=== PATIENT | male | born 1930 | race Caucasian/White ===

== ENCOUNTER 2016-05-15 16:31 | Observation (INO) | payer MEDICARE, OTHER ==
[~2016-05-15] VITALS: Ht 180.3 cm; Wt 112.2 kg
[~2016-05-15 16:31] MED LIST: AMLO10TA3 PO; CHOL500011 PO; CYAN50006 SL; DONE10TA42 PO; FLUO40CA PO; FOLI0.8T PO; LOSA25TA21 PO; NAM10 PO; OMEG500C PO; TRAZ-118 PO; VITA400C64 PO
[2016-05-15 16:34] VITALS: BP 168/103; PULSE 103; RESP 18; O2SAT 97
[2016-05-15 19:46] VITALS: BP 129/89; PULSE 97; O2SAT 97
--- NOTE | 2016-05-15 20:06 | ED.REPORT ---
HPI-General Illness Date of Service May 15, 2016 ED Provider: Mario Rendon MD An 85 year old male with mild Parkinson's, Alzheimer's, and a distant history of colon cancer s/p resection presents to the ED with constipation onset six days ago. The patient also reports abdominal pain. He denies nausea, vomiting, diarrhea, fever, or other symptoms. The patient has used stool softeners with no relief. He has had similar symptoms in the past successfully treated with enemas. Nursing Notes Stated Complaint: CONSTIPATION Chief Complaint: Male Abdominal Pain Nursing Notes Reviewed: Yes Allergies: Coded Allergies: No Known Allergies (Verified Allergy, Unknown, 05/15/16) Scheduled Amlodipine (Amlodipine) 10 Mg Tablet 10 MG PO DAILY Cholecalciferol (Vitamin D3) (Vitamin D3) 5,000 Unit Tablet 5,000 UNIT PO DAILY Donepezil (Donepezil) 10 Mg Tablet 10 MG PO HS Fluoxetine (Fluoxetine) 40 Mg Capsule 40 MG PO DAILY Folic Acid (Folic Acid) 0.8 Mg Tablet 0.8 MG PO DAILY Losartan Potassium (Losartan Potassium) 25 Mg Tablet 25 MG PO DAILY Memantine (Namenda) 10 Mg Tablet 10 MG PO BID [place]-3 Fatty Acids (Fish Oil) 500 Mg Capsule.dr 1,000 MG PO DAILY Trazodone (Trazodone) 100 Mg Tablet 100 MG PO TIDWM Vitamin E Mixed (Vitamin E) 400 Unit Capsule 400 UNIT PO DAILY Miscellaneous Medications Cyanocobalamin (Vitamin B-12) (B-12) 5,000 Mcg/1 Ml Drops 5,000 MCG SL General Time Seen by MD: 20:03 Chief Complaint Other (Constipation) Hx Obtained From: Patient Arrived By: Walk-in Sudden in Onset?: No Onset Occurred: 6 days ago Symptom Duration: Since onset Location: : Abdomen Quality: Painful Severity: Current: Moderate Severity: Maximum: Moderate Associated with: Denies: Fever, Nausea, Vomiting Pertinent Negative: Relieved by nothing Context Related History: Reports Cancer Recent Healthcare: No recent doctor visit Similar Sx Previous: Yes Past Medical History Past Medical History Prostate cancer Colon Cancer Alzheimer's Parkinson's Past Surgical History Double hernia Rotator cuff srgery Stenosis/ Back surgery Colon resection Reports: Tonsillectomy Smoking History Never Smoker Social History Alcohol Use: Denies alcohol use Drug Use: Denies drug use Other Social History: Lives alone, Lives with children Occupation lives with daughter 01/21/2016 Ambulatory Status Independent Review of Systems Full Review of Systems Constitutional: Denies: Fever Respiratory: Denies: Non-productive cough, Shortness of breath GI: Reports: Abdominal pain, Constipation, Denies: Diarrhea, Nausea, Vomiting Complete sys rev & neg: except as marked. Physical Exam Vital Signs Vital Signs Date Time Temp Pulse Resp B/P Pulse Ox O2 Delivery O2 Flow Rate FiO2 05/15/16 22:57 78 18 140/90 99 Room Air 05/15/16 19:46 36.4 97 129/89 97 Room Air 05/15/16 16:34 36.3 103 18 168/103 97 Room Air Initial VS: Reviewed Head / Eyes: Atraumatic, Normocephalic ENT: Conjunctiva normal, No scleral icterus Neck: Supple, Full range of motion Respiratory: Breath sounds normal, Clear to auscultation, No respiratory distress Cardiovascular: Regular rate & rhythm, Heart sounds normal Skin: Warm, Dry, No cyanosis Neurologic: Alert, Oriented, Nonfocal Psychiatric: Mood/affect normal, Behavior normal, Normal thought content Abdomen: Soft, Non-tender Obese Rectum / Perineum: Atraumatic, Blood - occult heme - Solid stool in rectum Interpretation & Diagnostics Lab Results Interpretation Result Diagram: 05/15/16202405/15/162024 Test 05/15/16 20:01 05/15/16 20:15 05/15/16 20:25 Hold Urine Received (Received) Urine Color Yellow (YELLOW) Urine Appearance Clear (CLEAR,HAZY) Urine pH 7.5 (5.0-8.0) Urine Specific [place] 1.025 (1.003-1.035) Urine Protein Negativemg/dL (NEG,TRACE) Urine Glucose (UA) Negativemg/dL (NEGATIVE) Urine Ketones Negativemg/dL (NEGATIVE) Urine Occult Blood Moderate (NEGATIVE) Urine Nitrite Negative (NEGATIVE) Urine Bilirubin Negative (NEGATIVE) Urine Urobilinogen 2.0mg/dL (NORMAL) Urine Leukocyte Esterase Negative (NEGATIVE) Urine RBC 0-2/hpf (0-2) Urine WBC 0-5/hpf (0-5) Urine Epithelial Cells None/hpf (NONE-MOD) Urine Crystals None seen (NONE SEEN) Urine Bacteria Few/hpf (NONE-FEW) Urine Hyaline Casts None/lpf (NONE) Urine Granular Casts None seen (NONE SEEN) Urine Waxy Casts None seen (NONE SEEN) Urine Red Blood Cell Casts None seen (NONE SEEN) Urine White Blood Cell Casts None seen (NONE SEEN) Urine Mucus None seen (None Seen) Urine Trichomonas None seen (NONE SEEN) Urine Yeast None (NONE SEEN) Urinalysis Comment None Urine Culture Reflexed Not indicated White Blood Count 7.4th/mm3 (3.8-10.1) Red Blood Count 4.45mil/mm3 (4.40-5.80) Hemoglobin 14.2g/dL (13.8-17.2) Hematocrit 41.8% (41.0-50.0) Mean Corpuscular Volume 93.9fL (81-100) Mean Corpuscular Hemoglobin 31.9pg (27.0-35.0) Mean Corpuscular Hemoglobin Concent 34.0% (32.0-37.0) Red Cell Distribution Width 12.6% (12.3-15.4) Platelet Count 216bil/L (150-400) Neutrophils (%) (Auto) 67.3% (40-74) Lymphocytes (%) (Auto) 22.9% (14-46) Monocytes (%) (Auto) 8.2% (4-12) Eosinophils (%) (Auto) 0.9% (0-5) Basophils (%) (Auto) 0.4% (0-3) Prothrombin Time 10.2sec (8.1-12.5) Prothromb Time International Ratio 0.95ratio Sodium Level 140mEq/L (134-144) Potassium Level 4.2mEq/L (3.5-5.2) Chloride Level 102mEq/L (97-108) Carbon Dioxide Level 25mmol/L (18-29) Blood Urea Nitrogen 19mg/dL (8-27) Creatinine 1.07mg/dL (0.76-1.27) Estimat Glomerular Filtration Rate 70mL/min (>59) Glucose Level 113mg/dL (60-99) Calcium Level 8.7mg/dL (8.5-10.1) Magnesium Level 2.5mg/dL (1.6-2.6) Total Bilirubin 0.3mg/dL (0.0-1.2) Aspartate Amino Transf (AST/SGOT) 24U/L (0-50) Alanine Aminotransferase (ALT/SGPT) 21U/L (0-44) Alkaline Phosphatase 77U/L (25-160) Total Protein 7.6g/dL (6.4-8.4) Albumin 4.1g/dL (3.4-5.0) Lipase 26U/L (13-60) Thyroid Stimulating Hormone (TSH) 2.100uIU/mL (0.450-4.500) Free Thyroxine 1.10ng/dL (0.82-1.77) Hold Peña Top Tube Received (Received) Re-Eval/Medical Decision Med Decision/Clinical Course 85-year-old mild dementia presents with six days of constipation and abdominal pain. His labs are reassuring. Multiple efforts at enemas have been unrevealing. After seven hours of effort emergency department he has become more confused and unable to cooperate. He is admitted now to the medicine service for continuation of his cleanout. Consider lactulose or similar measures if enemas or not productive. Source of Hx: Old records Time of Eval: 20:22 Patient Status: Condition improved Re-Evaluation/Progress Note: Rectal exam performed. Discussed with patient plan for enema. Time of Eval: 01:00 Patient Status: Condition improved Consultation : Referral / Consult Name: Jonathan Ron MD Consulted With: Hospitalist Call Returned at: 01:25 Instructional Coordinator: Agrees with eval, Agrees with plan, Accepts admit Note: Discussed with patient lab results, diagnosis, and plan for admit. Patient agrees with plan for care and all questions were addressed. Counseled Regarding: Diagnosis, Lab results, Need for admission Discharge & Departure Primary Impression: Constipation Constipation type: unspecified constipation type Qualified Code: K59.00 - Constipation, unspecified Additional Impression: Acute confusional state Disposition: ADMITTED TO HOSPITAL Discharge Condition All VS Reviewed: Yes Condition: Improved Referrals: Ed Garcia MD (PCP) Lashon Attestation Portions of this note were transcribed by Melina Velasquez. I, Dr. Rendon, personally performed the history, physical exam, and medical decision-making; I reviewed and confirmed the accuracy of the information in the transcribed note. Signed by: Lashon Garcia, 05/16/2016, 02:55 copies to: Ed Garcia MD, Christopher W MD May 15, 2016 20:06 MELINA VELASQUEZ May 15, 2016 20:22
[2016-05-15 20:28] LABS: APPEARANCE,URINE CLEAR (CLEAR,HAZY); COLOR,URINE YELLOW (YELLOW); PH,URINE 7.5 (5.0-8.0)
[2016-05-15 20:29] LABS: OCCULT BLOOD,URINE MODERATE (NEGATIVE)
[2016-05-15 20:46] LABS: BASOPHILS % (AUTO) 0.4 % (0-3); EOSINOPHILS % (AUTO) 0.9 % (0-5); MONOCYTES % (AUTO) 8.2 % (4-12); Mean Corpuscular Hemoglobin 31.9 pg (27.0-35.0); Mean Corpuscular Volume 93.9 fL (81-100); NEUTROPHILS % (AUTO) 67.3 % (40-74); Platelet Count 216 bil/L (150-400)
[2016-05-15 20:51] LABS: INR 0.95 ratio
[2016-05-15 21:40] LABS: Magnesium 2.5 mg/dL (1.6-2.6)
[2016-05-15 22:57] VITALS: BP 140/90; PULSE 78; RESP 18; O2SAT 99
[2016-05-16] MEDS ORDERED: Polyethylene Glycol (PEG) 17 Gm Powder PO PRN (01:45)
[2016-05-16] MEDS ORDERED: Alum-Mag Hydrox-Simeth 30 mL Suspension PO PRN (01:45)
[2016-05-16] MEDS ORDERED: Ondansetron 2 mg/mL 2 mL Inj IVPUSH PRN (01:45)
[2016-05-16 01:49] VITALS: BP 128/86; PULSE 88; RESP 18; O2SAT 99
--- NOTE | 2016-05-16 02:02 | PCM.HPMED ---
Subjective Date of Service May 16, 2016 Primary Provider: Admitting Physician: Jonathan Ron MD Primary Care Physician: Ed Garcia MD Attending Physician: Jonathan Ron MD Chief Complaint: Constipation History of Present Illness: Jackie Lobo is an 85-year-old obese gentleman with history of dementia with Alzheimer's and parkinsonism features, history of colon cancer status post surgery, and chronic constipation per patient report. He presents with complaint of constipation stating he has not had a bowel movement in 5-6 days despite using daily MiraLAX. Jackie reports that he has had constipation issues for 12-14 years. He reports that he takes MiraLAX and Dulcolax only when he has constipation as he does not like having soft stools, but denies use of any other bowel stimulants or stool softeners. He reports that he has a long-standing history of being in and out of the ER for complicated constipation requiring administration of medications. He reports that they "usually" are able to clean him out, but he reports that the constipation always seems to come back in a week or so. He denies any changes to his diet, fluid intake, medications, He denies any change to his daily activity. Patient reports that his 2-3 years ago secondary to complications associated with dementia. He has been living with his daughter locally ever since. He reports that she cooks all of the meals, and the meals tend to be comprised of a meat of some kind with very little vegetables or fruit , and usually a potato or other starch. When asked if he drinks water, he counted chuckles and says that he drinks a lot of milk. For example, he reports that this morning for breakfast he had a "chocolate mohawk" with a few glasses of milk. Review of outpatient records demonstrates no weight loss of any kind. Some outpatient notes report that his last colonoscopy was 4-5 years ago. In the ER, administered doses of magnesium citrate and one soapsuds enema without apparent success. Admission was requested for further management of his constipation. Patient is admitted under observation status with expected length of stay less than 2 midnights due to severity of presenting symptoms, risk of adverse event, and complexity of treatment plan. Review of Systems: Reports ongoing chronic shoulder and hip pain. Comprehensive review of systems conducted and was negative except for the pertinent positives listed in history of present illness above. Allergies Coded Allergies: No Known Allergies (Verified Allergy, Unknown, 05/15/16) Home Medications From [facility] not yet completed: Jackie Lobo [id number] 11/26/2015 01:00 PM 03/23 amLODIPine BESYLATE 10MG TAB TAKE ONE TABLET BY MOUTH DAILY aspirin 325 mg tablet take 1 tablet by oral route every day B12 5,000 mcg-100 mcg sublingual lozenge 5000 mcg QAM docusate sodium 100 mg capsule take 1 capsule by ORAL route 1 to 3 times every day as needed constipation. DONEPEZIL HCL 10 MG TABLET TAKE ONE TABLET BY MOUTH DAILY Durable Medical Equipment Disabled parking permit Fish Oil 1,000 mg capsule 2 tabs BID folic acid 800 mcg tablet take 1 tablet by oral route every day LOSARTAN POTASSIUM 25 MG TAB TAKE ONE TABLET BY MOUTH DAILY NAMENDA 10 MG TABLET TAKE ONE TABLET BY MOUTH TWICE A DAY Rytary 23.75 mg-95 mg capsule,extended release take 3 capsule by oral route 3 times every day traZODone 100 MG TABLET TAKE ONE TABLET BY MOUTH DAILY AFTER MEALS venlafaxine ER 75 mg capsule,extended release 24 hr take 3 capsule by oral route every day with food in the morning Vitamin D3 5,000 unit tablet vitamin E 400 unit capsule PMH Prostate cancer status post radiation Colon Cancer status post polypectomy (per patient report), but there is a long vertical surgical scar over the anterior abdomen that would suggest a somewhat more involved surgical procedure. Reported an outpatient notes of atrial fibrillation Chronic neck with radiculopathy, shoulder, hip pain Alzheimer's dementia Parkinsonism Hypertension Depression Surgical history Double hernia Rotator cuff surgery Stenosis/ Back surgery Tonsillectomy Polypectomy Family History Patient cannot recall any significant family history. 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 Reports that he served in the [employer] for 3 years during the time of the [place] War. 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 Reports that his approximately 2 years ago, and that prompted his moved to [place] to live with his daughter. Exam Vital Signs Vital Sign - Last Date Time Temp Pulse Resp B/P Pulse Ox O2 Delivery O2 Flow Rate FiO2 05/16/16 01:49 36.2 88 18 128/86 99 Room Air Exam General: Alert, Oriented X3, Cooperative, No Acute Distress Head: Normocephalic, atraumatic. External ears normal. Eyes: PERRL, EOMI. Anicteric sclerae. Conjunctivae are not injected Mouth: Mouth Normal, Mucous Membranes Moist/[place] Neck: Neck supple with full range of motion. No Thyromegaly. Chest & Lungs: Clear to auscultation bilaterally with no crackles, wheezes, or rhonchi. Normal respiratory effort. Cardiovascular: Regular Rate/Rhythm, Normal S1, Normal S2, No Murmurs/Rubs/ Gallops. Radial pulses are 2+ bilaterally as are the posterior tibials. Abdomen: Non-tender (patient reported some discomfort with palpation of the right lower quadrant, but upon reexamination 15 seconds later it was no longer tender), Non-distended, No masses, Normoactive bowel tones, Soft, vertical remote surgical scar GI: Rectal tone is good. Do not appreciate any hard stool in the vault. Do not appreciate any significant enlargement of the prostate gland, and cannot appreciate any mucosal damage. Musculoskeletal: Normal Range of Motion Extremities: No cyanosis/clubbing/edema bilat Neurological: Grossly Neurologically Intact, Cranial Nerves 2-12 Intact, Normal Speech Psych: Normal mood and affect. Thought process and content intact. Lab and Diagnostics Labs Laboratory Tests 72 Hours Test 05/15/16 20:01 05/15/16 20:15 05/15/16 20:25 Hold Urine Received (Received) Urine Color Yellow (YELLOW) Urine Appearance Clear (CLEAR,HAZY) Urine pH 7.5 (5.0-8.0) Urine Specific [place] 1.025 (1.003-1.035) Urine Protein Negativemg/dL (NEG,TRACE) Urine Glucose (UA) Negativemg/dL (NEGATIVE) Urine Ketones Negativemg/dL (NEGATIVE) Urine Occult Blood Moderate (NEGATIVE) Urine Nitrite Negative (NEGATIVE) Urine Bilirubin Negative (NEGATIVE) Urine Urobilinogen 2.0mg/dL (NORMAL) Urine Leukocyte Esterase Negative (NEGATIVE) Urine RBC 0-2/hpf (0-2) Urine WBC 0-5/hpf (0-5) Urine Epithelial Cells None/hpf (NONE-MOD) Urine Crystals None seen (NONE SEEN) Urine Bacteria Few/hpf (NONE-FEW) Urine Hyaline Casts None/lpf (NONE) Urine Granular Casts None seen (NONE SEEN) Urine Waxy Casts None seen (NONE SEEN) Urine Red Blood Cell Casts None seen (NONE SEEN) Urine White Blood Cell Casts None seen (NONE SEEN) Urine Mucus None seen (None Seen) Urine Trichomonas None seen (NONE SEEN) Urine Yeast None (NONE SEEN) Urinalysis Comment None Urine Culture Reflexed Not indicated White Blood Count 7.4th/mm3 (3.8-10.1) Red Blood Count 4.45mil/mm3 (4.40-5.80) Hemoglobin 14.2g/dL (13.8-17.2) Hematocrit 41.8% (41.0-50.0) Mean Corpuscular Volume 93.9fL (81-100) Mean Corpuscular Hemoglobin 31.9pg (27.0-35.0) Mean Corpuscular Hemoglobin Concent 34.0% (32.0-37.0) Red Cell Distribution Width 12.6% (12.3-15.4) Platelet Count 216bil/L (150-400) Neutrophils (%) (Auto) 67.3% (40-74) Lymphocytes (%) (Auto) 22.9% (14-46) Monocytes (%) (Auto) 8.2% (4-12) Eosinophils (%) (Auto) 0.9% (0-5) Basophils (%) (Auto) 0.4% (0-3) Prothrombin Time 10.2sec (8.1-12.5) Prothromb Time International Ratio 0.95ratio Sodium Level 140mEq/L (134-144) Potassium Level 4.2mEq/L (3.5-5.2) Chloride Level 102mEq/L (97-108) Carbon Dioxide Level 25mmol/L (18-29) Blood Urea Nitrogen 19mg/dL (8-27) Creatinine 1.07mg/dL (0.76-1.27) Estimat Glomerular Filtration Rate 70mL/min (>59) Glucose Level 113mg/dL (60-99) Calcium Level 8.7mg/dL (8.5-10.1) Magnesium Level 2.5mg/dL (1.6-2.6) Total Bilirubin 0.3mg/dL (0.0-1.2) Aspartate Amino Transf (AST/SGOT) 24U/L (0-50) Alanine Aminotransferase (ALT/SGPT) 21U/L (0-44) Alkaline Phosphatase 77U/L (25-160) Total Protein 7.6g/dL (6.4-8.4) Albumin 4.1g/dL (3.4-5.0) Lipase 26U/L (13-60) Thyroid Stimulating Hormone (TSH) 2.100uIU/mL (0.450-4.500) Free Thyroxine 1.10ng/dL (0.82-1.77) Hold Peña Top Tube Received (Received) Result Diagram: 05/15/16202405/15/162024 X-Rays, CTs and MRIs None performed this visit 12-lead ECG Not performed this visit Cardiac Echo Impressions Echo on 11/27/14 was unremarkable Assessment & Plan Jackie Lobo is an 85-year-old obese gentleman with history of dementia with Alzheimer's and parkinsonism features, history of colon cancer status post surgery, and chronic constipation per patient report. He presents with complaint of constipation stating he has not had a bowel movement in 5-6 days despite using daily MiraLAX. # Constipation, fecal impaction, long-standing history of constipation. Present on admission -Likely multifactorial * Likely combination of slow transit, dyssynergy, Parkinson's, his donepezil and memantine and venlafaxine, low fiber diet, inactive lifestyle, and some degree of social isolation, and certainly should keep on the differential colorectal cancer (especially given his history) -Received soap suds enema, and magnesium citrate in the ER without significant effect -We could certainly continue with the above, but suspect that he may require manual disimpaction versus endoscopic assistance -We will add mineral oil enema for trial. Schedule senna, and keep MiraLAX when necessary. Consideration for adding docusate and/or lactulose. -No mention of alarm symptoms: No hematochezia, no obstructive symptoms, no acute onset, no weight loss, no change in stool caliber, no reported family history. However, this is severe persisting constipation unresponsive to treatment. -Check stool guaiac (Will hold off on DVT ppx until we have this back) -We will need to stress lifestyle and dietary modification * Increase activity (use cane), increased vegetables and fiber sources in the diet, outpatient discussions regarding placement in a senior facility have met resistance from the patient, explore possible changes to his medication regimen , increase fluid intake (specifically water), optimize his bowel regimen -Given that this is a chronic issue, and therefore we are wishing to avoid stimulant laxatives for a long period of time, consideration for possible use of lubiprostone (colon secretagogue) in outpatient setting with as needed enemas at home to prevent further episodes of fecal impaction like we are seeing today. Chronic conditions: Chronic neck with radiculopathy, shoulder, hip pain-patient reports that she takes ibuprofen at home at night to help him sleep. Will provide a 1 time dose today, and deferred to further discussion with patient and assessment by the day team regarding continuation. Alzheimer's dementia and Parkinsonism-holding medications for now (given his constipation) Hypertension-he has had 2 significantly elevated blood pressures, we will continue to monitor overnight, and consider continuing home antihypertensives ( amlodipine and losartan) Depression-we will hold his venlafaxine (given his constipation) Obesity Please note, outpatient discussions regarding increased social exposure and possible placement in an assisted living facility where he could have more interaction with others. Unfortunately, per the outpatient record patient has been thus far against this course of action. He and his daughter (as she prepares the meals) may benefit from dietary education regarding food choices to help him avoid this problem in the future. When necessary medications include Tylenol and antiemetic as needed Patient is admitted under observation status with expected length of stay less than 2 midnights due to severity of presenting symptoms, risk of adverse event, and complexity of treatment plan. Pain Evaluation: Adequate Pain Control GI Prophylaxis: Not indicated Resuscitation Status: DNR/DNI:Do Not Resuscitate/Intubate Attending Statement The patient was seen and examined together with Dr. Carrasco on 05/16 and I agree with the history, exam and plan as outlined in the note above. copies to: Ed Garcia MD, Collin T DO May 16, 2016 02:02 Jonathan Ron MD May 16, 2016 07:03
[2016-05-16 02:09] VITALS: BP 203/90; PULSE 60; RESP 18; O2SAT 98
[2016-05-16 04:37] VITALS: BP 165/79
[2016-05-16 04:44] VITALS: BP 165/80; PULSE 58; RESP 18; O2SAT 98
--- NOTE | 2016-05-16 05:36 | NUR ---
Admit Pt arrived from ED at 0230. Admitted for constipation over the last 6 days and abdominal pain. Pt was given an enema in the ED and was able to have results after arriving to department. Pt is pleasantly confused.
[2016-05-16 08:38] VITALS: BP 170/82; PULSE 60; RESP 16; O2SAT 98
--- NOTE | 2016-05-16 10:06 | PCM.DIMED ---
Discharge Instructions Date of Service May 16, 2016 Dates of Hospitalization May 16, 2016 at 01:37 Discharge Diagnosis Discharge Diagnosis Constipation Diet Heart Healthy Activity No restrictions (The patient may resume usual activities gradually as tolerated) Call your provider Fever or Chills, Shortness of breath, Bleeding, Chest pain, Vomitting, Excessive diarrhea, Weakness (unilateral) Patient Instructions Follow-up Provider: Ed Garcia MD Follow-up with PCP in: 1 week Mario Lau MD May 16, 2016 10:05
[2016-05-16] MEDS ORDERED: SENN1TAB90 PO (10:09)
[2016-05-16] MEDS ORDERED: POLY17PO6 PO (10:09)
--- NOTE | 2016-05-16 10:50 | NUR ---
Social Work- Initial Assessment Data: Pt is a 85 year old male admitted for constipation, acute confusional state on 05/16/16 per H&P. Pt's insurance is [employer] and PCP is Ed Garcia MD. SW called [facility] Gaston [phone] to discuss discharge plan, SW role explained. Pt resides in a home in [place] with his daughter where he receives minimal assistance with his ADLs. Daughter continues to look into extermination inspector care options, Pt has LTC insurance. Pt has no VA benefits. Pt uses a cane at baseline and does not drive. Pt has experience with [facility] but is not currently open. Pt has no SNF history. SW confirmed DPOA is daughter Lorna Gaston. Pt to discharge home with daughter to transport via POV. No anticipate discharge needs. SW will continue to follow. 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 Plan: Pt to discharge home with daughter to discharge via POV. No anticipated discharge needs. SW will continue to follow if needs arise. ROBERTO Araujo Addendum: 05/16/16 at 1055 by ELIAS HUTSON SS Amended: Links added.
--- NOTE | 2016-05-16 10:50 | NUR ---
Case Management: JANE given and explained to pt at 10:02. Cora QUICKRN
--- NOTE | 2016-05-16 10:56 | NUR ---
Social Work- Discharge Data: EMR reviewed. Pt is on day 1 of hospitalization for constipation per H&P. Pt medically stable to discharge today. Pt to discharge home with daughter to transport via POV. No discharge needs. 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 Plan: Pt to discharge home today. Pt's daughter to transport via POV. No discharge needs. Penny Mayers, SOFTWARE TEST ANALYST
--- NOTE | 2016-05-16 12:23 | NUR ---
Discharge Pt discharged at 1206 with daughter to private vehicle. Pt alert to self only, SIN and no c/o pain. Pt able to have 2 large BM's prior to discharge. Pt's daughter has discharge instructions, care notes and rx's. All questions answered and family understands s/s to return to hospital. Pt had no IV access. Pt left cell phone on tray table in room, called daughter and she will return for phone, stored at wire charger desk.
--- NOTE | 2016-05-16 23:12 | PCM.DC.MED ---
Discharge Summary Date of Service May 16, 2016 Dates of Hospitalization Date of Hospital Admission May 16, 2016 at 01:37 Date of Discharge: May 16, 2016 Providers: Admitting Physician: Jonathan Ron MD Primary Care Physician: Ed Garcia MD Attending Physician: Jonathan Ron MD Diagnosis at Time of Discharge Diagnosis at Time of Discharge Constipation Procedures XRay, CTs & MRIs None performed this visit ECG 12 Lead Not performed this visit Cardiac Echo Impression Echo on 11/27/14 was unremarkable Brief History Jackie Lobo is an 85-year-old obese gentleman with history of dementia with Alzheimer's and parkinsonism features, history of colon cancer status post surgery, and chronic constipation per patient report. He presents with complaint of constipation stating he has not had a bowel movement in 5-6 days despite using daily MiraLAX. Jackie reports that he has had constipation issues for 12-14 years. He reports that he takes MiraLAX and Dulcolax only when he has constipation as he does not like having soft stools, but denies use of any other bowel stimulants or stool softeners. He reports that he has a long-standing history of being in and out of the ER for complicated constipation requiring administration of medications. He reports that they "usually" are able to clean him out, but he reports that the constipation always seems to come back in a week or so. He denies any changes to his diet, fluid intake, medications, He denies any change to his daily activity. Patient reports that his 2-3 years ago secondary to complications associated with dementia. He has been living with his daughter locally ever since. He reports that she cooks all of the meals, and the meals tend to be comprised of a meat of some kind with very little vegetables or fruit , and usually a potato or other starch. When asked if he drinks water, he counted chuckles and says that he drinks a lot of milk. For example, he reports that this morning for breakfast he had a "chocolate macanese" with a few glasses of milk. Review of outpatient records demonstrates no weight loss of any kind. Some outpatient notes report that his last colonoscopy was 4-5 years ago. In the ER, administered doses of magnesium citrate and one soapsuds enema without apparent success. Admission was requested for further management of his constipation. Patient was admitted under observation status with expected length of stay less than 2 midnights due to severity of presenting symptoms, risk of adverse event, and complexity of treatment plan. Hospital Course Jackie Lobo is an 85-year-old obese gentleman with history of dementia with Alzheimer's and parkinsonism features, history of colon cancer status post surgery, and chronic constipation per patient report. He presents with complaint of constipation stating he has not had a bowel movement in 5-6 days despite using daily MiraLAX. # Constipation, fecal impaction, long-standing history of constipation. Present on admission now resolved this patient has had 2 large bowel movements -Likely multifactorial * Likely combination of slow transit, dyssynergy, Parkinson's, his donepezil and memantine and venlafaxine, low fiber diet, inactive lifestyle, and some degree of social isolation, and certainly should keep on the differential colorectal cancer (especially given his history) -Received soap suds enema, and magnesium citrate in the ER without significant effect -We could certainly continue with the above, but suspect that he may require manual disimpaction versus endoscopic assistance -We will add mineral oil enema for trial. Schedule senna, and keep MiraLAX when necessary. Consideration for adding docusate and/or lactulose. -No mention of alarm symptoms: No hematochezia, no obstructive symptoms, no acute onset, no weight loss, no change in stool caliber, no reported family history. However, this is severe persisting constipation unresponsive to treatment. -Check stool guaiac (Will hold off on DVT ppx until we have this back) -We will need to stress lifestyle and dietary modification * Increase activity (use cane), increased vegetables and fiber sources in the diet, outpatient discussions regarding placement in a senior facility have met resistance from the patient, explore possible changes to his medication regimen , increase fluid intake (specifically water), optimize his bowel regimen - We will discharge home on senna +1 tablet by mouth twice a day Chronic conditions: Chronic neck with radiculopathy, shoulder, hip pain-patient reports that she takes ibuprofen at home at night to help him sleep. Will provide a 1 time dose today, and deferred to further discussion with patient and assessment by the day team regarding continuation. Alzheimer's dementia and Parkinsonism-holding medications for now (given his constipation) Hypertension-he has had 2 significantly elevated blood pressures, we will continue to monitor overnight, and consider continuing home antihypertensives ( amlodipine and losartan) Depression-we will hold his venlafaxine (given his constipation) Obesity Please note, outpatient discussions regarding increased social exposure and possible placement in an assisted living facility where he could have more interaction with others. Unfortunately, per the outpatient record patient has been thus far against this course of action. He and his daughter (as she prepares the meals) may benefit from dietary education regarding food choices to help him avoid this problem in the future. When necessary medications include Tylenol and antiemetic as needed Patient is being discharged home today. Exam Vital Signs (Last) Date Time Temp Pulse Resp B/P Pulse Ox O2 Delivery O2 Flow Rate FiO2 05/16/16 08:38 36.4 60 16 170/82 98 Room Air Exam General: Patient is in no apparent distress. HEENT: Head is atraumatic and normocephalic with normal male pattern baldness. Eyes: Pupils are equally round and reactive to light and accommodation. Extraocular muscles are intact. Sclera are white, anicteric. Subconjunctival mucosa is pink. Ears and nose are unremarkable. Oropharynx: There is no mucosal lesions, there is no thrush, there is no pharyngitis. Neck: Is supple, there are no nodes, or masses or tenderness. Chest: Is clear to auscultation and percussion. There are no rales, rhonchi, wheezes or rubs. Heart: Rate, rhythm is regular. There is no murmur, rub or gallop. Abdomen: Good bowel sounds are present. Abdomen is obese soft, nontender, no organomegaly or masses were appreciated. Extremities: Are symmetrical and well perfused. There is no edema, there is no cellulitis, no rash. Neurologic: There are no focal neurological deficits. Cranial nerves II through XII are intact. There are no sensory or motor deficits. Psychiatric: Patients mood is calm and shows no sign of agitation. Genital: Deferred Rectal: Deferred Test 05/15/16 20:01 05/15/16 20:15 05/15/16 20:25 Hold Urine Received (Received) Urine Color Yellow (YELLOW) Urine Appearance Clear (CLEAR,HAZY) Urine pH 7.5 (5.0-8.0) Urine Specific Cando 1.025 (1.003-1.035) Urine Protein Negativemg/dL (NEG,TRACE) Urine Glucose (UA) Negativemg/dL (NEGATIVE) Urine Ketones Negativemg/dL (NEGATIVE) Urine Occult Blood Moderate (NEGATIVE) Urine Nitrite Negative (NEGATIVE) Urine Bilirubin Negative (NEGATIVE) Urine Urobilinogen 2.0mg/dL (NORMAL) Urine Leukocyte Esterase Negative (NEGATIVE) Urine RBC 0-2/hpf (0-2) Urine WBC 0-5/hpf (0-5) Urine Epithelial Cells None/hpf (NONE-MOD) Urine Crystals None seen (NONE SEEN) Urine Bacteria Few/hpf (NONE-FEW) Urine Hyaline Casts None/lpf (NONE) Urine Granular Casts None seen (NONE SEEN) Urine Waxy Casts None seen (NONE SEEN) Urine Red Blood Cell Casts None seen (NONE SEEN) Urine White Blood Cell Casts None seen (NONE SEEN) Urine Mucus None seen (None Seen) Urine Trichomonas None seen (NONE SEEN) Urine Yeast None (NONE SEEN) Urinalysis Comment None Urine Culture Reflexed Not indicated White Blood Count 7.4th/mm3 (3.8-10.1) Red Blood Count 4.45mil/mm3 (4.40-5.80) Hemoglobin 14.2g/dL (13.8-17.2) Hematocrit 41.8% (41.0-50.0) Mean Corpuscular Volume 93.9fL (81-100) Mean Corpuscular Hemoglobin 31.9pg (27.0-35.0) Mean Corpuscular Hemoglobin Concent 34.0% (32.0-37.0) Red Cell Distribution Width 12.6% (12.3-15.4) Platelet Count 216bil/L (150-400) Neutrophils (%) (Auto) 67.3% (40-74) Lymphocytes (%) (Auto) 22.9% (14-46) Monocytes (%) (Auto) 8.2% (4-12) Eosinophils (%) (Auto) 0.9% (0-5) Basophils (%) (Auto) 0.4% (0-3) Prothrombin Time 10.2sec (8.1-12.5) Prothromb Time International Ratio 0.95ratio Sodium Level 140mEq/L (134-144) Potassium Level 4.2mEq/L (3.5-5.2) Chloride Level 102mEq/L (97-108) Carbon Dioxide Level 25mmol/L (18-29) Blood Urea Nitrogen 19mg/dL (8-27) Creatinine 1.07mg/dL (0.76-1.27) Estimat Glomerular Filtration Rate 70mL/min (>59) Glucose Level 113mg/dL (60-99) Calcium Level 8.7mg/dL (8.5-10.1) Magnesium Level 2.5mg/dL (1.6-2.6) Total Bilirubin 0.3mg/dL (0.0-1.2) Aspartate Amino Transf (AST/SGOT) 24U/L (0-50) Alanine Aminotransferase (ALT/SGPT) 21U/L (0-44) Alkaline Phosphatase 77U/L (25-160) Total Protein 7.6g/dL (6.4-8.4) Albumin 4.1g/dL (3.4-5.0) Lipase 26U/L (13-60) Thyroid Stimulating Hormone (TSH) 2.100uIU/mL (0.450-4.500) Free Thyroxine 1.10ng/dL (0.82-1.77) Hold Peña Top Tube Received (Received) Discharge Medications Discharge Medications Amlodipine (Amlodipine) 10 Mg Tablet 10 MG PO DAILY (Reported) Cholecalciferol (Vitamin D3) (Vitamin D3) 5,000 Unit Tablet 5,000 UNIT PO DAILY (Reported) Donepezil (Donepezil) 10 Mg Tablet 10 MG PO HS (Reported) Fluoxetine (Fluoxetine) 40 Mg Capsule 40 MG PO DAILY (Reported) Folic Acid (Folic Acid) 0.8 Mg Tablet 0.8 MG PO DAILY (Reported) Losartan Potassium (Losartan Potassium) 25 Mg Tablet 25 MG PO DAILY (Reported) Memantine (Namenda) 10 Mg Tablet 10 MG PO BID (Reported) [place]-3 Fatty Acids (Fish Oil) 500 Mg Capsule.dr 1,000 MG PO DAILY (Reported) Sennosides/Docusate Sodium (Senna-Docusate Sodium Tablet) 1 Each Tablet 1 EACH PO BID Prescribed by: MALENA LAU MD Trazodone (Trazodone) 100 Mg Tablet 100 MG PO TIDWM (Reported) Vitamin E Mixed (Vitamin E) 400 Unit Capsule 400 UNIT PO DAILY (Reported) As needed Polyethylene Glycol 3350 (Miralax) 17 Gm Powd.pack 17 GM PO DAILY PRN PRN For Constipation Prescribed by: MALENA LAU MD Miscellaneous Medications Cyanocobalamin (Vitamin B-12) (B-12) 5,000 Mcg/1 Ml Drops 5,000 MCG SL (Reported ) Followup Plan Disposition: Patient being discharged home with his daughter. Discharge Diet: Heart Healthy Discharge Activity: No restrictions (The patient may resume usual activities gradually as tolerated) Follow-up Provider: Ed Garcia MD Follow-up with PCP in: 1 week Time spent Time spent on discharging this patient was greater than 35 minutes, over half of which was involved in counseling and coordination of care. Mario Lau MD May 16, 2016 23:12
[2016-08-16] MEDS ORDERED: LACT10SO (13:09)
[2016-08-16] MEDS ORDERED: ARIP2TAB11 (13:09)
[2016-08-16] MEDS ORDERED: VENL75CA95 (13:09)
[2016-08-16] MEDS ORDERED: CARB1TAB14 PO (13:09)
[2016-08-16] MEDS ORDERED: TAMS0.4C29 (13:09)
== END 2016-05-16 12:00 | disposition home or self-care (01) ==
LOC: SED 16:31 → OSC 05-16 01:37
PROVIDERS: ADMIT Hospitalist; ATTEND Hospitalist
DX: K59.00 Constipation, unspecified (principal); G20 Parkinson's disease; G30.9 Alzheimer's disease, unspecified; F02.80 Dementia in other diseases classified elsewhere, unspecified severity, without behavioral disturbance, psychotic disturbance, mood disturbance, and anxiety; I10 Essential (primary) hypertension; F32.9 Major depressive disorder, single episode, unspecified; M54.12 Radiculopathy, cervical region; M54.2 Cervicalgia; E66.9 Obesity, unspecified; Z66 Do not resuscitate; Z85.038 Personal history of other malignant neoplasm of large intestine; Z85.46 Personal history of malignant neoplasm of prostate; Z68.34 Body mass index [BMI] 34.0-34.9, adult
CPT/HCPCS: 36415; 80053; 81000; 83690; 83735; 84439; 84443; 85025; 85610; 99285; G0378

== ENCOUNTER 2016-08-17 05:43 | Day surgery (SDC) | payer MEDICARE, OTHER ==
[~2016-08-17] VITALS: Ht 177.8 cm; Wt 116.1 kg
[2016-08-17] VITALS (10 sets, daily range): BP systolic 148–181; BP diastolic 67–85; PULSE 56–67; RESP 8–17; O2SAT 97–100
[~2016-08-17 05:43] MED LIST changes: +ARIP2TAB11; +CARB1TAB14 PO; +LACT10SO; +POLY17PO6 PO; +SENN1TAB90 PO; +TAMS0.4C29; +VENL75CA95
[2016-08-17] MEDS ORDERED: Dexamethasone 4 mg/mL Inj ONE (05:44)
[2016-08-17] MEDS ORDERED: EPHEDrine/NS 5 mg/mL 5 mL Syringe ONE (05:44)
[2016-08-17] MEDS ORDERED: Propofol 10,000 mCg/mL 20 mL Inj ONE (05:44)
[2016-08-17] MEDS ORDERED: levoFLOXacin Inj 500 MG in IV Premix 1 EACH IV SCH (06:00)
[2016-08-17] MEDS: Lactated Ringer's 1,000 ML IV SCH ×2 (06:29→09:23)
[2016-08-17 07:06] LABS: BASOPHILS % (AUTO) 0.5 % (0-3); EOSINOPHILS % (AUTO) 2.6 % (0-5); MONOCYTES % (AUTO) 11.4 % (4-12); Mean Corpuscular Hemoglobin 32.1 pg (27.0-35.0); Mean Corpuscular Volume 96.4 fL (81-100); NEUTROPHILS % (AUTO) 63.4 % (40-74); Platelet Count 170 bil/L (150-400)
[2016-08-17] MEDS ORDERED: ASPI325T32 PO (07:43)
--- NOTE | 2016-08-17 08:25 | DRSVH ---
PROCEDURE: X-RAY KUB ([id number]) INDICATIONS: LEFT NEPHROLITHIASIS TECHNIQUE: One view of the abdomen acquired. COMPARISON: [facility], CT, CT ABD PELVIS W&WO CON IVP, 07/12/2016, 13:57. [facility], CR, XR KUB, 01/21/2016, 13:41. FINDINGS: Surgical changes and devices: None. Bowel: Bowel gas pattern is normal. Soft tissues: 2.5 cm calcification is seen projected over the midpole of the left kidney. 2 calcific ations project over the right kidney largest measuring 2.0 cm and the smaller 1.1 cm. Bones: No suspicious bony lesions. IMPRESSION: Calcifications projected over the right and left kidneys as above. Dictated by: Avila CASTRO Interpreted: Vikram Banks MD on 08/17/2016 at 8:23 Transcribed by: LORNA on 08/17/2016 at 8:25 Approved by: Vikram Banks M.D. on 08/17/2016 at 12:19
[2016-08-17] MEDS ORDERED: Lactated Ringer's 500 ML IV PRN (09:42)
[2016-08-17] MEDS ORDERED: Lactated Ringer's 1,000 ML IV SCH (09:42)
[2016-08-17] MEDS ORDERED: EPHEDrine Sulfate 50 mg/mL Inj IVPUSH PRN (09:45)
[2016-08-17] MEDS ORDERED: fentaNYL-PF 50 mCg/mL 2 mL Inj IVPUSH PRN (09:45)
[2016-08-17] MEDS ORDERED: Phenylephrine 10,000 mCg/mL Inj IVPUSH PRN (09:45)
[2016-08-17] MEDS ORDERED: Atropine 0.4 mg/mL Inj IVPUSH PRN (09:45)
[2016-08-17] MEDS ORDERED: Labetalol 5 mg/mL 4 mL Inj IV PRN (09:45)
--- NOTE | 2016-08-17 09:51 | PCM.HPANE ---
Patient Data Surgeon Admitting Provider: Attending Provider:Miroslava Light MD Primary Care Physician:Ed Garcia MD Other Provider:[facility] Reason for Visit Kidney Stone Ht/WT & BMI Height (Feet): 5 Height (Inches): 10 Weight (Kilograms): 116.1 Body Mass Index 36.00 Allergies Coded Allergies: No Known Allergies (Verified Allergy, Unknown, 05/15/16) Past Anesthesia History Anesthesia History: Denies:: Abnormal Airway, Anesthesia Reactions, Difficult Intubation, Fam Anesthesia Reaction, Fam Malignant Hypertherm, Malignant Hyperthermia Diabetes History Hx Diabetes?: No MRSA MRSA: No Medications Home Meds Incl Beta Lul: No Active Scripts Sennosides/Docusate Sodium (Senna-Docusate Sodium Tablet)1 Each Tablet1 Each PO BID #60 TABLET Prov:Mario Lau MD 05/16/16 Polyethylene Glycol 3350 (Miralax)17 Gm Powd.pack17 Gm PO DAILY PRN For Constipation #30 Prov:Mario Lau MD 05/16/16 Reported Medications Aspirin 325 Mg [id number] Mg PO DAILY #1 BOTTLE 08/17/16 Lactulose 10 Gm/15 Ml Vvvjxuyy18 Ml DAILY #473 08/16/16 Tamsulosin ER 0.4 Mg Cap.er.24h #31 08/16/16 Aripiprazole 2 Mg Tablet2 Mg HS #28 08/16/16 Venlafaxine ER 75 Mg Cap.er.93p295 Mg #84 08/16/16 Carbidopa/Levodopa 25-100 mg 1 Each Tablet1 Tab PO TID #84 08/16/16 Vitamin E Mixed (Vitamin E)400 Unit [id number] Unit PO DAILY 30 Days 11/02/14 Cholecalciferol (Vitamin D3) (Vitamin D3)5,000 Unit Tablet5,000 Unit PO DAILY 11/02/14 Trazodone 100 Mg Nexzyk228 Mg PO TIDWM Ref 0 11/02/14 Memantine (Namenda)10 Mg Kdrxgv89 Mg PO BID 30 Days Ref 0 11/02/14 Losartan Potassium 25 Mg Ttcsab98 Mg PO DAILY 11/02/14 Folic Acid 0.8 Mg Tablet0.8 Mg PO DAILY 11/02/14 [place]-3 Fatty Acids (Fish Oil)500 Mg Capsule.dr1,000 Mg PO BID 11/02/14 Donepezil 10 Mg Pplfxw76 Mg PO HS Ref 0 11/02/14 Cyanocobalamin (Vitamin B-12) (B-12)5,000 Mcg/1 Ml Drops5,000 Mcg SL 11/02/14 Amlodipine 10 Mg Kehpvi91 Mg PO DAILY Ref 0 11/02/14 Discontinued Reported Medications Fluoxetine 40 Mg Avtgmtr32 Mg PO DAILY Ref 0 11/02/14 History History of ENT Problems?: Yes HEENT History: Positive for:: Dysphagia (with water) Denies:: Cataracts Sinus Problem Denture Type: None Teeth Condition: Missing Teeth Hx of Heart Problems?: Yes Cardiovascular History: Positive for:: Hypertension Denies:: AICD Abdominal Aortic Aneurism Atrial Fibrillation Cardiac Surgery Chest Pain Congestive Heart Failure Coronary Artery Disease Edema Heart Murmur Irregular Heartbeat Pacemaker Peripheral Vascular Rheumatic Fever Thrombophlebitis Valvular Heart Disease Hx of Respiratory Problem?: No Respiratory History: Denies:: Asthma COPD Chest Surgery Cough Dyspnea Emphysema Hemoptysis Oxygen Administration Pneumonia Pulmonary Embolism Tuberculosis Use of C-PAP Machine Use of Inhalers / NEBS Hx Neurologic Problems?: Yes Neurological History: Positive for:: Alzheimer's Disease Dementia Parkinson's Disease Denies:: CVA Dizziness Headaches Multiple Sclerosis Peripheral Neuropathy Seizures TIA Hx of GI Problems?: Yes Gastrointestinal History: Denies:: Cirrhosis Diverticulitis Gall Bladder Disease Gastroesphageal Reflux Gastrointestinal Bleeding Heartburn Hepatitis Hiatal Hernia Liver Disease Rectal Bleeding Other GI Pertinent History: COLON CA S/P SURGERY---CHRONIC CONSTIPATION Hx of Problems?: No Genitourinary History: Denies:: HX of Hemodialysis Kidney Stones Urinary Tract Infection HX of Peritoneal Dialysis: No Male Hx: Positive for:: Prostate Problems (CA S/P RADIATION) Denies:: Scrotal Mass Testicular Surgery Skin History: Positive for:: Pressure Ulcers Denies:: History Skin Disorders? Hx Musculoskeletal Problems?: Yes Musculoskeletal History: Positive for:: Osteoarthritis (CHRONIC SHLDR AND HIP PAIN) Denies:: Back Injury Degenerative Joint Fibromyalgia Joint Replacement Musculoskeletal Trauma Myasthenia Gravis Rheumatoid Arthritis Systemic Lupus Hx of Psycho/Social Problems?: Yes Psycho Social History: Positive for:: Anxiety (situational) Hx Depression Denies:: Bipolar Disorder Suicide Attempt Hx Surgeries?: Yes (hernia, colon disection) Hx Any Other Health Problems?: Yes Other History: Positive for:: Cancer (colon and prostate) Denies:: Endocrine Disease Hospitalization Thyroid Disease History Blood Transfusions: Denies:: Accept Blood Products? Blood Transfuse Reaction Blood Transfusions Hx Diabetes: No Hx Alcohol Use: NoHx Substance Use: No Smoking Status: Never Smoker Stop/Bang S-Snoring: Do You Snore Loudly: No T-Tired: feel tired, fatigued: No O-Obsered: Observed not breath: No P-Blood Pressure: treated: Yes B- Body Mass Index > 35 kg/m2: Yes A- Age over 50: Yes N- Neck Large Circumference: No G- Gender Male: Yes CARISSA Total Score: 4 CARISSA Category 2: Yes Risk Assessment Category Category 1A: Patient has history of documented sleep apnea, and HAS NOT received any narcotic, sedative or anesthesia administration during this stay. Category 1B: Patient has history of documented sleep apnea, and HAS received any narcotic , sedative or anesthesia administration during this stay Category 2: Patient has SUSPECTED Obstructive Sleep Apnea, and HAS received any narcotic , sedative or anesthesia administration during this stay. Category 3: Patient has SUSPECTED Obstructive Sleep Apnea and HAS NOT received narcotic, sedative or anesthesia administration during this stay. Category 4: Outpatient in Procedural Areas with known sleep apnea or who screen positive for High Risk via the STOP/BANG questionnaire. Exam Exam Vital Signs Vital Signs Date Time Temp Pulse Resp B/P Pulse Ox O2 Delivery O2 Flow Rate FiO2 08/17/16 06:41 36.3 67 16 180/85 97 Room Air General Appearance: Alert, Oriented X3, Cooperative, No Acute Distress HEENT/AIRWAY: MP 2, Neck Movement (some neck stiffness), Mouth Opening (3 FBMO) Lungs: Clear to Auscultation, Normal Air Movement Heart: Exam Unremarkable, Regular Rate/Rhythm Meds/Labs/Diagnostics Admission Meds Current Medications Lactated Ringer's (Lr) 1,000 ml @ 120 mls/hr Q8H20M IV Last administered on t 06:29; Start 08/17/16 at 05:00; Stop 08/17/16 at 13:19 Labs Test 08/17/16 06:59 White Blood Count 7.4th/mm3 (3.8-10.1) Red Blood Count 4.17mil/mm3 (4.40-5.80) Hemoglobin 13.4g/dL (13.8-17.2) Hematocrit 40.2% (41.0-50.0) Mean Corpuscular Volume 96.4fL (81-100) Mean Corpuscular Hemoglobin 32.1pg (27.0-35.0) Mean Corpuscular Hemoglobin Concent 33.3% (32.0-37.0) Red Cell Distribution Width 13.3% (12.3-15.4) Platelet Count 170bil/L (150-400) Neutrophils (%) (Auto) 63.4% (40-74) Lymphocytes (%) (Auto) 21.8% (14-46) Monocytes (%) (Auto) 11.4% (4-12) Eosinophils (%) (Auto) 2.6% (0-5) Basophils (%) (Auto) 0.5% (0-3) Plan Impression Patient chart reviewed, patient interviewed and anesthestic plan with risks, benefits, and alternatives discussed, and informed consent obtained. NPO per Anesth. Guidelines: Yes ASA Physical Status: ASA3 Severe Disease (parkinsons) Anesthetic Plan: GA Bene/Risks/Altern/Consents: Yes HP Complete Prior to Induction: Yes Jose Angel Schaeffer MD Aug 17, 2016 07:15
--- NOTE | 2016-08-17 10:38 | PCM.ANEP1 ---
Post Anesthesia PACU Phase 1 Assessment Vital Signs Vital Signs Date Time Temp Pulse Resp B/P Pulse Ox O2 Delivery O2 Flow Rate FiO2 08/17/16 10:35 58 13 181/67 99 Room Air 08/17/16 10:30 36.7 59 15 166/70 98 Room Air 08/17/16 10:25 60 11 161/70 97 Room Air 08/17/16 10:20 61 16 162/74 99 Room Air 08/17/16 10:15 36.2 60 17 164/74 100 Simple Mask 7 08/17/16 10:10 61 16 161/70 100 Simple Mask 7 08/17/16 10:05 59 8 148/69 100 Simple Mask 12 08/17/16 10:03 36.2 149/71 08/17/16 06:41 36.3 67 16 180/85 97 Room Air Anesthetic Administered: GA Level of Alertness: Awake, talking SIN's with Equal Strength: Yes Pain: No Nausea or Vomiting: No CV Function & Hydration Stable: No Airway Device: Oxygen Delivery: Simple Mask Lungs: Clear to Auscultation, Normal Air Movement Dermatome Level: Full Sensation PACU Phase 2 Assessment Complications: No Follow up Care: N/A Patient Instructions Provided: N/A Jose Angel Schaeffer MD Aug 17, 2016 10:38
--- NOTE | 2016-08-17 10:55 | OP ---
[address] [address] OPERATIVE REPORT PATIENT: BENEDICTO TRIPLETT : 1930 MR#: [id number] ADMIT: 08/17/2016 JOB ID: [id number] DATE OF SURGERY: 08/17/2016 SURGEON: Miroslava Light MD PREOPERATIVE DIAGNOSIS(ES): Left kidney stone. POSTOPERATIVE DIAGNOSIS(ES): Phimosis and left kidney stone. PROCEDURE PERFORMED: 1. Cystoscopy and left retrograde pyelogram. 2. Left ureteral stent placement (modifier 22 is being requested given the patient's severe phimosis). OUTPATIENT INTERVIEWING CLERK: None. FINDINGS: 1. Severe phimosis. 2. Normal left retrograde pyelogram. ANESTHESIA: General. ESTIMATED BLOOD LOSS: Less than 5 mL. DRAINS: A 6 x 28 left double-J ureteral stent. SPECIMENS: None. COMPLICATIONS: None. CONDITION: Stable. INDICATIONS FOR PROCEDURE: The patient is an 86-year-old man with bilateral nephrolithiasis. He was scheduled today for a left extracorporeal shockwave lithotripsy and stent placement. However, the patient continued to take his fish oil. He was therefore counseled regarding the modified nature of the procedure, that being stent placement only given that this can be done even with fish oil. He voiced understanding and understands he will be rescheduled for the next shockwave lithotripsy date. It will be coordinated with his fdc facility to stop his aspirin and fish oil 7 days prior to the date of the procedure. DESCRIPTION OF THE PROCEDURE: After informed consent was obtained, the patient was taken to the operating room. A time-out was performed identifying correct patient, surgical site, and procedure. General anesthesia was smoothly induced. He was placed in the lithotomy position and all pressure points were identified and appropriately padded. Genitals were then prepped and draped in a sterile fashion. It was observed that the patient had severe phimosis. The foreskin could not be retracted. Gentle manipulation of the penis to produce the glans through the foreskin was unsuccessful. Christy clamp was placed within the phimotic ring of foreskin and used to gently dilate the foreskin. This resulted in only scant bleeding. The meatus could be seen through this now dilated phimotic ring. It was cannulated with a 22-[place] rigid cystoscope. The cystoscope was then advanced to the patient's bladder and the bladder was drained. The bladder appeared somewhat trabeculated, but not severely so. The left ureteral orifice was seen in orthotopic position. It was cannulated with a 5-[place] open-ended Pollack catheter. Retrograde pyelogram was performed. It appeared normal. A Sensor tip wire was used to cannulate the Pollack and it was advanced to the renal pelvis and seen under fluoroscopy. The Pollack was then backloaded off the wire. A 6 x 28 double-J ureteral stent was loaded over it and advanced into the renal pelvis as seen under fluoroscopy. The wire was then removed leaving a nice coil in the patient's bladder as seen under direct vision. The bladder was then drained. The instruments were then removed from the patient's body. The foreskin was examined again and there was no bleeding. The patient was reversed from general anesthesia and taken to PACU in good and stable condition. Modifier 22 is being requested for this procedure as cystoscopy took over 3 times longer given the severe phimosis present. MARY
[2016-08-17] MEDS ORDERED: oxyCODONE-Acetamin 5-325 mg Tablet PO ONE ×2 (11:35→14:10)
== END 2016-08-17 23:59 | disposition home or self-care (01) ==
LOC: SAS 05:43
PROVIDERS: ATTEND Urology
DX: N20.0 Calculus of kidney (principal); N47.1 Phimosis; R35.1 Nocturia; I10 Essential (primary) hypertension; I48.0 Paroxysmal atrial fibrillation; G20 Parkinson's disease; F02.80 Dementia in other diseases classified elsewhere, unspecified severity, without behavioral disturbance, psychotic disturbance, mood disturbance, and anxiety; F32.9 Major depressive disorder, single episode, unspecified; E66.8 Other obesity; Z79.82 Long term (current) use of aspirin; Z85.038 Personal history of other malignant neoplasm of large intestine; Z85.46 Personal history of malignant neoplasm of prostate; Z68.36 Body mass index [BMI] 36.0-36.9, adult
CPT/HCPCS: 36415; 52332; 74000; 80048; 85025; C2617; J1100; J7120

== ENCOUNTER 2016-08-31 07:44 | Day surgery (SDC) | payer MEDICARE, OTHER ==
[2016-08-31] VITALS (10 sets, daily range): BP systolic 112–159; BP diastolic 59–76; PULSE 52–67; RESP 13–18; O2SAT 94–99
[~2016-08-31] VITALS: Ht 177.8 cm; Wt 117.1 kg
[~2016-08-31 07:44] MED LIST changes: +ASPI325T32 PO; +CeFAZolin 2 Gm/50 mL D5W IV Premix IV ONE; -FLUO40CA PO
[2016-08-31] MEDS ORDERED: Ondansetron 2 mg/mL 2 mL Inj ONE (07:45)
[2016-08-31] MEDS ORDERED: Propofol 10,000 mCg/mL 20 mL Inj ONE (07:45)
[2016-08-31] MEDS: Lactated Ringer's 1,000 ML IV SCH ×2 (08:20→10:43)
[2016-08-31] MEDS ORDERED: Gentamicin Inj 120 MG in Dextrose 5% 100 ML IV ONE (08:56)
--- NOTE | 2016-08-31 09:01 | DRSVH ---
PROCEDURE: X-RAY KUB ([id number]) INDICATIONS: LEFT KIDNEY STONE TECHNIQUE: One view of the abdomen acquired. COMPARISON: [facility], CR, XR KUB, 08/17/2016, 6:14. [facility], CR, XR KUB , 01/21/2016, 13:41. FINDINGS: Surgical changes and devices: The there has been interval placement of a double-J left-sided ureteral stent, which is grossly in appropriate position. Postoperative changes within the right upper quadr ant appear to be related to prior bowel surgery. Bowel: Bowel gas pattern is normal. No air-filled distended small bowel loops are seen demonstratin g air-fluid levels. Soft tissues: There is an ovoid calcification seen within the left upper quadrant. An irregular calc ification is seen within the right upper quadrant. Both of these calculi are overlying the expected location of the kidneys. Visualized solid organ contours appear normal in size. Bones: No suspicious bony lesions. Moderate to severe degenerative changes involving the imaged spi ne, sacroiliac joints, hips, and pubic symphysis are noted. No displaced fractures are evident. IMPRESSION: 1. Interval placement of a double-J left ureteral stent. 2. Bilateral renal calculi. 3. No evidence of bowel obstruction is appreciated. Dictated by: Lamont Goldberg M.D. on 08/31/2016 at 8:58 Approved by: Lamont Goldberg M.D. on 08/31/2016 at 8:59
--- NOTE | 2016-08-31 10:14 | PCM.HPANE ---
Patient Data Surgeon Admitting Provider: Attending Provider:Chelsea Lubin MD Primary Care Physician:Ed Garcia MD Other Provider:Kallie Loganingham Anesthesia Reason for Visit Left Kidney Stone Ht/WT & BMI Height (Feet): 5 Height (Inches): 10 Weight (Kilograms): 117.1 Body Mass Index 36.00 Allergies Coded Allergies: No Known Allergies (Verified Allergy, Unknown, 05/15/16) Past Anesthesia History Anesthesia History: Denies:: Abnormal Airway, Anesthesia Reactions, Difficult Intubation, Fam Anesthesia Reaction, Fam Malignant Hypertherm, Malignant Hyperthermia Diabetes History Hx Diabetes?: No MRSA MRSA: No Medications Blood Thinner: Aspirin Hypertension Medication: Yes Home Meds Incl Beta Lul: No Active Scripts Sennosides/Docusate Sodium (Senna-Docusate Sodium Tablet)1 Each Tablet1 Each PO BID #60 TABLET Prov:Mario Lau MD 05/16/16 Polyethylene Glycol 3350 (Miralax)17 Gm Powd.pack17 Gm PO DAILY PRN For Constipation #30 Prov:Mario Lau MD 05/16/16 Reported Medications Aspirin 325 Mg Opneyl416 Mg PO DAILY #1 BOTTLE 08/17/16 Lactulose 10 Gm/15 Ml Wgczleau96 Ml DAILY #473 08/16/16 Tamsulosin ER 0.4 Mg Cap.er.24h #31 08/16/16 Aripiprazole 2 Mg Tablet2 Mg HS #28 08/16/16 Venlafaxine ER 75 Mg Cap.er.68q423 Mg #84 08/16/16 Carbidopa/Levodopa 25-100 mg 1 Each Tablet1 Tab PO TID #84 08/16/16 Vitamin E Mixed (Vitamin E)400 Unit Fknfyjr671 Unit PO DAILY 30 Days 11/02/14 Cholecalciferol (Vitamin D3) (Vitamin D3)5,000 Unit Tablet5,000 Unit PO DAILY 11/02/14 Trazodone 100 Mg Twzzdb274 Mg PO TIDWM Ref 0 11/02/14 Memantine (Namenda)10 Mg Aoowhr52 Mg PO BID 30 Days Ref 0 11/02/14 Losartan Potassium 25 Mg Wzyavx66 Mg PO DAILY 11/02/14 Folic Acid 0.8 Mg Tablet0.8 Mg PO DAILY 11/02/14 [place]-3 Fatty Acids (Fish Oil)500 Mg Capsule.dr1,000 Mg PO BID 11/02/14 Donepezil 10 Mg Xqiivg00 Mg PO HS Ref 0 11/02/14 Cyanocobalamin (Vitamin B-12) (B-12)5,000 Mcg/1 Ml Drops5,000 Mcg SL 11/02/14 Amlodipine 10 Mg Vyzwcm95 Mg PO DAILY Ref 0 11/02/14 History History of ENT Problems?: Yes HEENT History: Positive for:: Dysphagia (with water) Denies:: Abnormal Airway Cataracts Difficult Intubation Sinus Problem Denture Type: Partial- Upper Teeth Condition: Within Normal Limits Hx of Heart Problems?: Yes Cardiovascular History: Positive for:: Atrial Fibrillation (PAF) Hypertension Denies:: AICD Abdominal Aortic Aneurism Cardiac Surgery Chest Pain Congestive Heart Failure Edema Heart Murmur Irregular Heartbeat Pacemaker Rheumatic Fever Thrombophlebitis Valvular Heart Disease (echo 11/2014= ef 60-65%) Hx of Respiratory Problem?: No Respiratory History: Denies:: Asthma COPD Chest Surgery Cough Dyspnea Emphysema Hemoptysis Oxygen Administration Pneumonia Pulmonary Embolism Tuberculosis Use of C-PAP Machine Hx Neurologic Problems?: Yes Neurological History: Positive for:: Alzheimer's Disease Dementia Parkinson's Disease Denies:: CVA Dizziness Headaches Multiple Sclerosis Seizures Hx of GI Problems?: Yes Other GI Pertinent History: hx of colon ca - colectomy Hx of Problems?: Yes Genitourinary History: Positive for:: Kidney Stones (left kidney stone current admission problem) Denies:: HX of Hemodialysis Urinary Tract Infection HX of Peritoneal Dialysis: No Male Hx: Positive for:: Prostate Problems (CA S/P RADIATION) Denies:: Scrotal Mass Testicular Surgery Skin History: Positive for:: Pressure Ulcers Denies:: History Skin Disorders? Hx Musculoskeletal Problems?: Yes Musculoskeletal History: Denies:: Back Injury Degenerative Joint Joint Replacement Musculoskeletal Trauma Systemic Lupus Hx of Psycho/Social Problems?: Yes Psycho Social History: Positive for:: Anxiety (situational) Hx Depression Denies:: Bipolar Disorder Suicide Attempt Hx Surgeries?: Yes (hernia, colon resection) Hx Any Other Health Problems?: Yes Other History: Positive for:: Cancer (colon and prostate) Denies:: Endocrine Disease Hospitalization Thyroid Disease History Blood Transfusions: Denies:: Blood Transfuse Reaction Blood Transfusions Hx Diabetes: No Hx Alcohol Use: NoHx Substance Use: No Smoking Status: Never Smoker Have You Smoked inLast 12 mo: No Stop/Bang Treated for Sleep Apnea?: No Do You Have a CPAP Machine?: No S-Snoring: Do You Snore Loudly: No T-Tired: feel tired, fatigued: No O-Obsered: Observed not breath: No P-Blood Pressure: treated: Yes B- Body Mass Index > 35 kg/m2: Yes A- Age over 50: Yes N- Neck Large Circumference: No G- Gender Male: Yes CARISSA Total Score: 4 CARISSA Risk Assessment: High Risk, =/>3 Yes Risk Assessment Category Category 1A: Patient has history of documented sleep apnea, and HAS NOT received any narcotic, sedative or anesthesia administration during this stay. Category 1B: Patient has history of documented sleep apnea, and HAS received any narcotic , sedative or anesthesia administration during this stay Category 2: Patient has SUSPECTED Obstructive Sleep Apnea, and HAS received any narcotic , sedative or anesthesia administration during this stay. Category 3: Patient has SUSPECTED Obstructive Sleep Apnea and HAS NOT received narcotic, sedative or anesthesia administration during this stay. Category 4: Outpatient in Procedural Areas with known sleep apnea or who screen positive for High Risk via the STOP/BANG questionnaire. Exam Exam Vital Signs Vital Signs Date Time Temp Pulse Resp B/P Pulse Ox O2 Delivery O2 Flow Rate FiO2 08/31/16 08:40 36.4 60 18 139/74 94 Room Air General Appearance: Oriented X3 HEENT/AIRWAY: MP 2 Lungs: Normal Air Movement Heart: Regular Rate/Rhythm Meds/Labs/Diagnostics Admission Meds Current Medications Lactated Ringer's (Lr) 1,000 ml @ 120 mls/hr Q8H20M IV Last administered on t 08:20; Start 08/31/16 at 05:00; Stop 08/31/16 at 13:19 Plan Impression Patient chart reviewed, patient interviewed and anesthestic plan with risks, benefits, and alternatives discussed, and informed consent obtained. NPO per Anesth. Guidelines: Yes ASA Physical Status: ASA3 Severe Disease Anesthetic Plan: GA Bene/Risks/Altern/Consents: Yes HP Complete Prior to Induction: Yes Angel Ortega MD Aug 31, 2016 10:13
[2016-08-31] MEDS ORDERED: Lactated Ringer's 500 ML IV PRN (10:43)
[2016-08-31] MEDS ORDERED: Lactated Ringer's 1,000 ML IV SCH (10:43)
[2016-08-31] MEDS ORDERED: HYDROmorphone 1 mg/mL Inj IVPUSH PRN (10:45)
[2016-08-31] MEDS ORDERED: Ondansetron 2 mg/mL 2 mL Inj IVPUSH PRN (10:45)
[2016-08-31] MEDS ORDERED: Phenylephrine 10,000 mCg/mL Inj IVPUSH PRN (10:45)
[2016-08-31] MEDS ORDERED: fentaNYL-PF 50 mCg/mL 2 mL Inj IVPUSH PRN (10:45)
[2016-08-31] MEDS ORDERED: Dexamethasone 4 mg/mL Inj IVPUSH PRN (10:45)
[2016-08-31] MEDS ORDERED: EPHEDrine Sulfate 50 mg/mL Inj IVPUSH PRN (10:45)
[2016-08-31] MEDS ORDERED: Labetalol 5 mg/mL 4 mL Inj IV PRN (10:45)
[2016-08-31] MEDS ORDERED: Belladonna Alk-Opium 60 mg Rectal Suppository RECTAL PRN (10:55)
[2016-08-31] MEDS ORDERED: Codeine-APAP 30-300 mg Tablet PO PRN (10:55)
--- NOTE | 2016-08-31 12:36 | PCM.ANEP1 ---
Post Anesthesia PACU Phase 1 Assessment Vital Signs Vital Signs Date Time Temp Pulse Resp B/P Pulse Ox O2 Delivery O2 Flow Rate FiO2 08/31/16 12:19 58 15 159/72 96 Room Air 08/31/16 12:00 61 14 158/76 95 Room Air 08/31/16 11:45 57 17 138/68 98 Simple Mask 10 08/31/16 11:40 54 15 135/64 98 Simple Mask 10 08/31/16 11:35 52 13 128/64 94 Simple Mask 10 08/31/16 11:30 52 14 118/60 98 Simple Mask 10 08/31/16 11:25 37.3 55 15 112/59 99 Simple Mask 10 08/31/16 08:40 36.4 60 18 139/74 94 Room Air Anesthetic Administered: GA Level of Alertness: Awake, talking Pain: No Nausea or Vomiting: No CV Function & Hydration Stable: No Airway Device: Lungs: Normal Air Movement PACU Phase 2 Assessment Patient Instructions Provided: N/A Angel Ortega MD Aug 31, 2016 12:36
--- NOTE | 2016-08-31 13:06 | OP ---
[address] [address] OPERATIVE REPORT PATIENT: BENEDICTO TRIPLETT : 1930 MR#: [id number] ADMIT: 08/31/2016 JOB ID: [id number] DATE OF SURGERY: 08/31/2016 SURGEON: Chelsea Lubin M.D. PREOPERATIVE DIAGNOSIS(ES): Left renal calculus. POSTOPERATIVE DIAGNOSIS(ES): Left renal calculus. PROCEDURE: Left ESWL. I had planned to do a stent exchange today, however, the patient's urinalysis strongly suggests urinary tract infection, so we will proceed just with ESWL today. DESCRIPTION OF PROCEDURE: Under general anesthetic, the patient was placed in the supine position. The stone was easily visualized radiographically. A total of 2500 shocks were delivered to the stone with excellent radiographic fragmentation. DISPOSITION: The patient tolerated the procedure well and left the operating room in good condition. I will see him back in one week with a KUB.
== END 2016-08-31 23:59 | disposition home or self-care (01) ==
LOC: SAS 07:44
PROVIDERS: ATTEND Urology
DX: N20.0 Calculus of kidney (principal); N47.1 Phimosis; I10 Essential (primary) hypertension; I48.0 Paroxysmal atrial fibrillation; G20 Parkinson's disease; F02.80 Dementia in other diseases classified elsewhere, unspecified severity, without behavioral disturbance, psychotic disturbance, mood disturbance, and anxiety; Z79.82 Long term (current) use of aspirin; Z85.038 Personal history of other malignant neoplasm of large intestine; Z85.46 Personal history of malignant neoplasm of prostate
CPT/HCPCS: 50590; 74000; J0690; J1580; J2405; J7120

== ENCOUNTER 2016-09-20 11:42 | Day surgery (SDC) | payer MEDICARE, OTHER ==
[~2016-09-20] VITALS: Ht 177.8 cm; Wt 116.7 kg
[2016-09-20] VITALS (9 sets, daily range): BP systolic 122–175; BP diastolic 66–91; PULSE 70–92; RESP 14–18; O2SAT 93–98
[~2016-09-20 11:42] MED LIST changes: -CeFAZolin 2 Gm/50 mL D5W IV Premix IV ONE; +Lactated Ringer's 1,000 ML IV ONE; -TAMS0.4C29; +TAMS0.4C29 PO; -VENL75CA95; +VENL75CA95 PO; +levoFLOXacin Inj 500 MG in IV Premix 1 EACH IV ONE
[2016-09-20] MEDS ORDERED: Dexamethasone 4 mg/mL Inj ONE (11:43)
[2016-09-20] MEDS ORDERED: EPHEDrine/NS 5 mg/mL 5 mL Syringe ONE (11:43)
[2016-09-20] MEDS ORDERED: Lidocaine PF 1% 30 mL Inj ONE (11:43)
[2016-09-20] MEDS ORDERED: fentaNYL-PF 50 mCg/mL 2 mL Inj ONE (11:43)
[2016-09-20] MEDS ORDERED: Ondansetron 2 mg/mL 2 mL Inj ONE (11:43)
[2016-09-20] MEDS ORDERED: Propofol 10,000 mCg/mL 20 mL Inj ONE (11:43)
[2016-09-20] MEDS ORDERED: MELA5TAB14 PO (12:53)
[2016-09-20] MEDS ORDERED: QUET25TA73 PO (12:57)
[2016-09-20] MEDS ORDERED: NITR-66 PO (12:57)
[2016-09-20] MEDS ORDERED: ACETAMINOPHEN-COD PO (13:01)
[2016-09-20] MEDS ORDERED: NAPR250T PO (13:01)
[2016-09-20] MEDS ORDERED: ACET325C PO (13:01)
[2016-09-20] MEDS ORDERED: MAG CITRATE PO (13:01)
--- NOTE | 2016-09-20 14:12 | PCM.HPANE ---
Patient Data Date of Service: Sep 20, 2016 Surgeon Admitting Provider: Attending Provider:Inez Garcia MD Primary Care Physician:Ed Garcia MD Other Provider:Guzman Logan Anesthesia Reason for Visit Lt Ureteral Stone Ht/WT & BMI Height (Feet): 5 Height (Inches): 10 Weight (Kilograms): 116.7 Body Mass Index 36.00 Allergies Coded Allergies: No Known Allergies (Verified Allergy, Unknown, 05/15/16) Past Anesthesia History Anesthesia History: Denies:: Abnormal Airway, Anesthesia Reactions, Difficult Intubation, Fam Anesthesia Reaction, Fam Malignant Hypertherm, Malignant Hyperthermia Diabetes History Hx Diabetes?: No MRSA MRSA: No Medications Blood Thinner: Aspirin Hypertension Medication: Yes Home Meds Incl Beta Lul: No Active Scripts Sennosides/Docusate Sodium (Senna-Docusate Sodium Tablet)1 Each Tablet1 Each PO BID #60 TABLET Prov:Mario Lau MD 05/16/16 Polyethylene Glycol 3350 (Miralax)17 Gm Powd.pack17 Gm PO DAILY PRN For Constipation #30 Prov:Mario Lau MD 05/16/16 Reported Medications Acetaminophen 325 Mg Mjkpdoh336 Mg PO Q8HRS PRN For Pain 09/20/16 [Acetaminophen-Cod] 300/15 No Conflict Check1-2 Tablet PO Q4HRS PRN For Pain # 30 09/20/16 [Mag Citrate] No Conflict Check Po Prn 09/20/16 Naproxen 250 Mg Oyemtt672 Mg PO BID PRN For Pain Ref 0 09/20/16 Quetiapine Fumarate 25 Mg Cnqxos33 Mg PO HS #28 09/20/16 Nitrofurantoin Macrocrystal (Macrodantin)100 Mg Uzxflzp726 Mg PO BID #14 09/20/16 Melatonin 5 Mg Tablet5 Mg PO HS 09/20/16 Aspirin 325 Mg Bowbmh852 Mg PO DAILY #1 BOTTLE 08/17/16 Lactulose 10 Gm/15 Ml Xqcawfvh45 Ml DAILY #473 08/16/16 Tamsulosin ER 0.4 Mg Cap.er.24h0.4 Mg PO DAILY #31 08/16/16 Aripiprazole 2 Mg Tablet2 Mg HS #28 08/16/16 Venlafaxine ER 75 Mg Cap.er.59s339 Mg PO DAILY #84 08/16/16 Carbidopa/Levodopa 25-100 mg 1 Each Tablet1 Tab PO TID #84 08/16/16 Vitamin E Mixed (Vitamin E)400 Unit Fddayai053 Unit PO DAILY 30 Days 11/02/14 Cholecalciferol (Vitamin D3) (Vitamin D3)5,000 Unit Tablet5,000 Unit PO DAILY 11/02/14 Trazodone 100 Mg Tjcjop293 Mg PO HS Ref 0 11/02/14 Memantine (Namenda)10 Mg Erssbu92 Mg PO BID 30 Days Ref 0 11/02/14 Losartan Potassium 25 Mg Qmqoxq22 Mg PO DAILY 11/02/14 Folic Acid 0.8 Mg Tablet0.8 Mg PO DAILY 11/02/14 [place]-3 Fatty Acids (Fish Oil)500 Mg Capsule.dr2,000 Mg PO BID 11/02/14 Donepezil 10 Mg Bzwvys01 Mg PO AM Ref 0 11/02/14 Cyanocobalamin (Vitamin B-12) (B-12)5,000 Mcg/1 Ml Drops5,000 Mcg SL 11/02/14 Amlodipine 10 Mg Wexqli01 Mg PO DAILY Ref 0 11/02/14 History History of ENT Problems?: Yes HEENT History: Positive for:: Dysphagia (with water) Denies:: Abnormal Airway Cataracts Difficult Intubation Sinus Problem Denture Type: None Teeth Condition: Missing Teeth (right upper incisor missing; nothing loose) Hx of Heart Problems?: Yes Cardiovascular History: Positive for:: Atrial Fibrillation (PAF) Hypertension Denies:: AICD Abdominal Aortic Aneurism Cardiac Surgery Chest Pain Congestive Heart Failure Edema Heart Murmur Irregular Heartbeat Pacemaker Rheumatic Fever Thrombophlebitis Valvular Heart Disease (echo 11/2014= ef 60-65%) Hx of Respiratory Problem?: No Respiratory History: Denies:: Asthma COPD Chest Surgery Cough Dyspnea Emphysema Hemoptysis Oxygen Administration Pneumonia Pulmonary Embolism Tuberculosis Use of C-PAP Machine Hx Neurologic Problems?: Yes Neurological History: Positive for:: Alzheimer's Disease Dementia Parkinson's Disease Denies:: CVA Dizziness Headaches Multiple Sclerosis Seizures Hx of GI Problems?: No Hx of Problems?: Yes Genitourinary History: Positive for:: Kidney Stones (left kidney stone current admission problem) Denies:: HX of Hemodialysis Urinary Tract Infection HX of Peritoneal Dialysis: No Male Hx: Positive for:: Prostate Problems (CA S/P RADIATION) Denies:: Scrotal Mass Testicular Surgery Skin History: Positive for:: Pressure Ulcers Denies:: History Skin Disorders? Hx Musculoskeletal Problems?: Yes Musculoskeletal History: Denies:: Back Injury Degenerative Joint Joint Replacement Musculoskeletal Trauma Systemic Lupus Hx of Psycho/Social Problems?: Yes Psycho Social History: Positive for:: Anxiety (situational) Hx Depression Denies:: Bipolar Disorder Suicide Attempt Hx Surgeries?: Yes (hernia, colon resection) Hx Any Other Health Problems?: Yes Other History: Positive for:: Cancer (colon and prostate) Denies:: Endocrine Disease Hospitalization Thyroid Disease History Blood Transfusions: Positive for:: Accept Blood Products? Denies:: Blood Transfuse Reaction Blood Transfusions Hx Diabetes: No Hx Alcohol Use: NoHx Substance Use: No Smoking Status: Never Smoker Have You Smoked inLast 12 mo: No Stop/Bang S-Snoring: Do You Snore Loudly: Yes T-Tired: feel tired, fatigued: Yes O-Obsered: Observed not breath: No P-Blood Pressure: treated: Yes B- Body Mass Index > 35 kg/m2: Yes A- Age over 50: Yes N- Neck Large Circumference: Yes G- Gender Male: Yes CARISSA Total Score: 7 CARISSA Risk Assessment: High Risk, =/>3 Yes CARISSA Category 4 OutPt Procedure: Yes Risk Assessment Category Category 1A: Patient has history of documented sleep apnea, and HAS NOT received any narcotic, sedative or anesthesia administration during this stay. Category 1B: Patient has history of documented sleep apnea, and HAS received any narcotic , sedative or anesthesia administration during this stay Category 2: Patient has SUSPECTED Obstructive Sleep Apnea, and HAS received any narcotic , sedative or anesthesia administration during this stay. Category 3: Patient has SUSPECTED Obstructive Sleep Apnea and HAS NOT received narcotic, sedative or anesthesia administration during this stay. Category 4: Outpatient in Procedural Areas with known sleep apnea or who screen positive for High Risk via the STOP/BANG questionnaire. Exam Exam Vital Signs Vital Signs Date Time Temp Pulse Resp B/P Pulse Ox O2 Delivery O2 Flow Rate FiO2 09/20/16 12:02 36.4 92 18 175/91 98 Room Air General Appearance: Alert, Oriented X3, Cooperative, No Acute Distress HEENT/AIRWAY: MP 1, Neck Movement (limited; tmd 3 fb) Lungs: Clear to Auscultation, Normal Air Movement Heart: Regular Rate/Rhythm, No Murmurs/Rubs/Gallops Meds/Labs/Diagnostics Admission Meds Current Medications Lactated Ringer's (Lr) 1,000 ml @ 120 mls/hr Q8H20M ONCE IV Last administered on 09/20/16t 11:50; Start 09/20/16 at 09:30; Stop 09/20/16 at 17:49 Plan Impression Patient chart reviewed, patient interviewed and anesthestic plan with risks, benefits, and alternatives discussed, and informed consent obtained. NPO per Anesth. Guidelines: Yes ASA Physical Status: ASA3 Severe Disease Anesthetic Plan: GA Bene/Risks/Altern/Consents: Yes HP Complete Prior to Induction: Yes Vinh Scott MD Sep 20, 2016 14:12
[2016-09-20] MEDS ORDERED: Atropine 0.4 mg/mL Inj IVPUSH PRN (14:50)
[2016-09-20] MEDS ORDERED: Lactated Ringer's 500 ML IV PRN (14:50)
[2016-09-20] MEDS ORDERED: EPHEDrine Sulfate 50 mg/mL Inj IM PRN (14:50)
[2016-09-20] MEDS ORDERED: Phenylephrine 10,000 mCg/mL Inj IVPUSH PRN (14:50)
[2016-09-20] MEDS ORDERED: Ondansetron 2 mg/mL 2 mL Inj IVPUSH PRN (14:50)
[2016-09-20] MEDS ORDERED: EPHEDrine Sulfate 50 mg/mL Inj IVPUSH PRN (14:50)
[2016-09-20] MEDS ORDERED: HYDROmorphone 1 mg/mL Inj IVPUSH PRN (14:50)
[2016-09-20] MEDS ORDERED: fentaNYL-PF 50 mCg/mL 2 mL Inj IVPUSH PRN (14:50)
[2016-09-20] MEDS ORDERED: Labetalol 5 mg/mL 4 mL Inj IV PRN (14:50)
[2016-09-20] MEDS ORDERED: Lactated Ringer's 1,000 ML IV SCH (14:50)
[2016-09-20] MEDS ORDERED: Bupivacaine-MPF 0.5% 30 mL Inj INFILTRATE ONE (14:54)
[2016-09-20] MEDS ORDERED: Belladonna Alk-Opium 60 mg Rectal Suppository RECTAL ONE (16:08)
[2016-09-20] MEDS ORDERED: Phenazopyridine 97.5 mg Tablet PO PRN (16:35)
[2016-09-20] MEDS ORDERED: HYDROcodone-APAP 5-325 mg Tablet PO PRN (16:35)
[2016-09-20] MEDS ORDERED: Ondansetron 8 mg ODT Tablet PO PRN (16:35)
--- NOTE | 2016-09-20 20:17 | PCM.ANEP1 ---
Post Anesthesia PACU Phase 1 Assessment Date of Service: Sep 20, 2016 Vital Signs Vital Signs Date Time Temp Pulse Resp B/P Pulse Ox O2 Delivery O2 Flow Rate FiO2 09/20/16 18:00 36.6 79 18 150/74 96 Room Air 09/20/16 17:15 36.3 70 16 153/76 93 Room Air 09/20/16 17:10 75 15 151/82 97 09/20/16 16:55 73 14 133/79 95 09/20/16 16:40 74 16 136/73 96 Room Air 09/20/16 16:35 71 14 122/70 97 Room Air 09/20/16 16:30 72 15 131/66 95 Room Air 09/20/16 16:25 37.2 75 17 131/66 95 Room Air Anesthetic Administered: GA Level of Alertness: Awake, talking SIN's with Equal Strength: Yes Pain: No Nausea or Vomiting: No CV Function & Hydration Stable: No Airway Device: none Oxygen Delivery: Room Air Lungs: Clear to Auscultation, Normal Air Movement Dermatome Level: Full Sensation PACU Phase 2 Assessment Complications: No Follow up Care: No Patient Instructions Provided: N/A Vinh Scott MD Sep 20, 2016 20:17
--- NOTE | 2016-09-20 20:29 | OP ---
[address] [address] OPERATIVE REPORT PATIENT: BENEDICTO TRIPLETT : 1930 MR#: [id number] ADMIT: 09/20/2016 JOB ID: [id number] DATE OF SURGERY: 09/20/2016 SURGEON: Inez Garcia MD PROCEDURE: Cystoscopy with 1 difficult left ureteroscopy, laser lithotripsy, basket stone extraction, and 2 left-sided double-J stent change, as well as 3 dorsal slit for severe phimosis. PREOPERATIVE DIAGNOSIS(ES): 1. Retained obstructed left ureteral stent, migrated. 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 POSTOPERATIVE DIAGNOSIS(ES): 1. Retained obstructed left ureteral stent, migrated. 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 INDICATIONS: The patient is an 86-year-old gentleman with some mild dementia who was originally referred to Urology Clinic with gross hematuria. Imaging showed him to have some bilateral nephrolithiasis, right-sided nonobstructing, left-sided, with a 2 cm ovoid-shaped calculus at the UPJ surrounding which there was some hydronephrosis and perinephric stranding and thickening of the wall of the renal pelvis suggesting that this was in fact causing difficulty for the patient and putting his kidney at risk. It was thus recommended that we attempt treatment for this side. The patient had been the brought to the operating room where a double-J stent was placed on that side and then ultimately he had left-sided extracorporeal shock wave lithotripsy. Two weeks when he was brought back to clinic for evaluation, A plain x-ray showed the large stone the broken up very nicely and there to be several smaller fragments in the ureter with the ureter grossly dilated. We elected to go ahead and try to remove the stent. The stent itself was grasped with some difficulty due to the patient's phimosis. It was brought to the meatus and collection of stone in the patient's ureter then wedged the stent in snf down the ureter, with the distal end of the stent in the patient's urethra. There was no way to really further safely manipulate this in clinic, thus the patient was set up for ureteroscopy. PROCEDURE DETAIL: After appropriate informed consent was obtained, the patient was brought to the operating room, where he received IV antibiotics prior to onset of the procedure. SCDs were placed. Adequate general anesthesia was induced. He was carefully placed in the dorsal position, with all pressure points carefully padded. Cleaned, prepped, and draped in the usual sterile fashion. Rigid scope was introduced into the patient's bladder. The distal end of the stent was seen approximately 1[address] the ureteral orifice. There was considerable calculi in the patient's trabeculated bladder. We were able to use a grasper and ultimately manipulate the stent out, despite the stones. This was done with minimal traction and felt safe for the ureter. Once we had the stent out, we advanced a wire up past the distal end of the ureter into good position in the renal pelvis. We did a retrograde pyelogram which revealed a very dilated ureter down to the distal several centimeter, which was relatively speaking undilated. There were some possible filling defects felt to be stone. Once we advanced the ureteroscope up into him, we saw there was a great deal of the stone, which was broken up reasonably well. However, some of the pieces were rather large and the volume itself was quite large in this very dilated area of the ureter. Ultimately we needed to dilate the distal end of the ureter itself with a 14-[place]ian outer diameter balloon. We then brought out many many fragments to the patient's bladder using a basket. We went through at least two baskets, with one wearing out. A front desk representative piece of stone was handed off for stone analysis. The remainder was left in the patient's bladder. Once we had the ureter, we used the laser to break these stones up to smaller pieces, and then made numerous numerous trips, taking well over an hour to an hour and a half just for the stone portion of the case too large to clear that ureter. Once we had done that, we left the safety wire in place, backloaded the safety wire through the cystoscope, and advanced a 6-Jordanian by 28 cm double-J stent over the wire into good position, with a curl in renal pelvis and a curl in the patient's bladder. There was a good deal of stone in the patient's bladder. Some of this was irrigated out. The remainder was left. Clot was irrigated out and the patient's bladder itself was drained. It should be noted prior to the ability to start the case we did actually perform a dorsal slit, which I failed to dictate at the beginning of the case. To do this, after cleaning and prepping the gentleman we went ahead and stretched his severely phimotic foreskin enough to expose the glans, cleaned it further with Betadine at that point, and then used two Christy clamps to create a dorsal slit, allowing much easier access to the patient's glans and meatus. Several adhesions were taken down and cleaned with Betadine. We then oversewed the edges of the dorsal slit with a 3-0 chromic. Bacitracin was used for after the procedure itself was done. MARY
--- NOTE | 2016-09-22 11:07 | DRSVH ---
PROCEDURE: X-RAY RETROGRADE UROGRAPHY INDICATIONS: LEFT STONES REMOVAL TECHNIQUE: 5 intra-operative images acquired by the Urology service. COMPARISON: [facility], CT, CT ABD PELVIS W&WO CON IVP, 07/12/2016, 13:57. [facility], CR, XR ABD AP 1VW, 09/18/2016, 15:13. FINDINGS: Exam is limited to 5 submitted images. Within these limits there is partial opacification of the left renal collecting system demonstrating moderate hydronephrosis. Multiple intraluminal fi lling defects visualized within the ureter at the level slightly above the left iliac crest as well a s near the ureterovesical junction. Ureteral stent was placed. IMPRESSION: 1. Moderate left hydronephrosis and multiple intraluminal filling defects visualized within the left ureter suggesting retained stones and/or debris. 2. Ureteral stent placement. Dictated by: Avila CASTRO Interpreted: Lisa Machado MD on 09/21/2016 at 8:13 Approved by: Lisa Machado M.D. on 09/22/2016 at 11:06
== END 2016-09-20 23:59 | disposition home or self-care (01) ==
LOC: SAS 11:42
PROVIDERS: ATTEND Urology
DX: N20.1 Calculus of ureter (principal); N47.1 Phimosis; I10 Essential (primary) hypertension; I48.0 Paroxysmal atrial fibrillation; G20 Parkinson's disease; F02.80 Dementia in other diseases classified elsewhere, unspecified severity, without behavioral disturbance, psychotic disturbance, mood disturbance, and anxiety; F32.9 Major depressive disorder, single episode, unspecified; Z79.01 Long term (current) use of anticoagulants; Z79.82 Long term (current) use of aspirin; Z85.038 Personal history of other malignant neoplasm of large intestine; Z85.46 Personal history of malignant neoplasm of prostate
CPT/HCPCS: 52356; 74420; 82360; C2617; J1100; J2405; J3010; J7120; Q9967

== ENCOUNTER 2016-10-20 14:54 | Emergency (ER) | payer MEDICARE, OTHER ==
[~2016-10-20] VITALS: Ht 177.8 cm; Wt 110.0 kg
[~2016-10-20 14:54] MED LIST changes: +ACET325C PO; +ACETAMINOPHEN-COD PO; -Lactated Ringer's 1,000 ML IV ONE; +MAG CITRATE PO; +MELA5TAB14 PO; +NAPR250T PO; +NITR-66 PO; +QUET25TA73 PO; -levoFLOXacin Inj 500 MG in IV Premix 1 EACH IV ONE
[2016-10-20 14:57] VITALS: BP 153/90; PULSE 66; RESP 19; O2SAT 97
--- NOTE | 2016-10-20 16:34 | ED.REPORT ---
HPI-General Illness Date of Service Oct 20, 2016 ED Provider: Nimco Mullins MD The pt is a 86 y/o male w/ a hx of HTN, BPH, Alzheimers, lithotripsy, prostate cancer, and back surgery presenting to the ED via EMS due to L sided flank pain onset 2 days ago. He was reaching behind to wipe his buttocks, heard a pop and then began feeling the pain. He also reports recently having a L sided kidney stone blasted out roughly 2 weeks ago. Denies fevers, or hematuria. The pt currently lives at [facility]. Nursing Notes Stated Complaint: BACK PAIN Chief Complaint: Back Pain or Injury Nursing Notes Reviewed: Yes Allergies: Coded Allergies: No Known Allergies (Verified Allergy, Unknown, 05/15/16) Scheduled ([Mag Citrate]) PO PRN Amlodipine (Amlodipine) 10 Mg Tablet 10 MG PO DAILY Aripiprazole (Aripiprazole) 2 Mg Tablet 2 MG HS Aspirin (Aspirin) 325 Mg Tablet 325 MG PO DAILY Carbidopa/Levodopa 25-100 mg (Carbidopa/Levodopa 25-100 mg) 1 Each Tablet 1 TAB PO TID Cholecalciferol (Vitamin D3) (Vitamin D3) 5,000 Unit Tablet 5,000 UNIT PO DAILY Donepezil (Donepezil) 10 Mg Tablet 10 MG PO AM Folic Acid (Folic Acid) 0.8 Mg Tablet 0.8 MG PO DAILY Lactulose (Lactulose) 10 Gm/15 Ml Solution 15 ML DAILY Losartan Potassium (Losartan Potassium) 25 Mg Tablet 25 MG PO DAILY Melatonin (Melatonin) 5 Mg Tablet 5 MG PO HS Memantine (Namenda) 10 Mg Tablet 10 MG PO BID Nitrofurantoin Macrocrystal (Macrodantin) 100 Mg Capsule 100 MG PO BID Inland-3 Fatty Acids (Fish Oil) 500 Mg Capsule.dr 2,000 MG PO BID Quetiapine Fumarate (Quetiapine Fumarate) 25 Mg Tablet 25 MG PO HS Sennosides/Docusate Sodium (Senna-Docusate Sodium Tablet) 1 Each Tablet 1 EACH PO BID Tamsulosin ER (Tamsulosin ER) 0.4 Mg Cap.er.24h 0.4 MG PO DAILY Trazodone (Trazodone) 100 Mg Tablet 100 MG PO HS Venlafaxine ER (Venlafaxine ER) 75 Mg Cap.er.24h 225 MG PO DAILY Vitamin E Mixed (Vitamin E) 400 Unit Capsule 400 UNIT PO DAILY Scheduled PRN ([Acetaminophen-Cod]) 300/15 1-2 TABLET PO Q4HRS PRN PRN For Pain Acetaminophen (Acetaminophen) 325 Mg Capsule 650 MG PO Q8HRS PRN PRN For Pain Naproxen (Naproxen) 250 Mg Tablet 250 MG PO BID PRN PRN For Pain Polyethylene Glycol 3350 (Miralax) 17 Gm Powd.pack 17 GM PO DAILY PRN PRN For Constipation Miscellaneous Medications Cyanocobalamin (Vitamin B-12) (B-12) 5,000 Mcg/1 Ml Drops 5,000 MCG SL General Time Seen by MD: 16:34 Chief Complaint Other (L sided flank pain ) Hx Obtained From: Patient, EMS Arrived By: Ambulance Sudden in Onset?: Yes Symptom Duration: 2 days Recent Healthcare: No recent hospitalization, Recent doctor visit Similar Sx Previous: Yes Past Medical History Past Medical History Prostate cancer Colon Cancer 1979' Alzheimer's Parkinson's HTN BPH Past Surgical History Double hernia Rotator cuff srgery Stenosis/ Back surgery Colon resection Lithotripsy Reports: Tonsillectomy Smoking History Never Smoker Social History Alcohol Use: Denies alcohol use Drug Use: Denies drug use Other Social History: Lives alone, Lives with children Occupation lives with daughter 01/21/2016 Ambulatory Status Independent Review of Systems Full Review of Systems Constitutional: Denies: Fever Male: Reports Flank pain (L sided), Denies Hematuria Complete sys rev & neg: except as marked. Physical Exam Vital Signs Vital Signs Date Time Temp Pulse Resp B/P Pulse Ox O2 Delivery O2 Flow Rate FiO2 10/20/16 14:57 36.4 66 19 153/90 97 Room Air Initial VS: Reviewed General/Constitutional: Well-developed, Well-nourished Head / Eyes: Atraumatic, Normocephalic, PERRL ENT: Mucous membranes moist, Conjunctiva normal, No scleral icterus Neck: Supple, Non-tender, Full range of motion Respiratory: Breath sounds normal, Clear to auscultation, No respiratory distress Abdomen / GI: Soft, Non-tender Back: No CVA tenderness Extremities: Vascular intact, Neuro intact, No swelling, No tenderness Skin: Warm, Dry, No cyanosis Neurologic: Alert, Oriented, Nonfocal Psychiatric: Mood/affect normal, Behavior normal, Normal thought content Cardiovascular: Heart rate NL, Regular rhythm, Heart sounds NL, Peripheral circulation NL Back: Full range of motion Spasms to L paraspinous muscles Interpretation & Diagnostics CT KUB IMPRESSION: 1. Left double-J ureteral stent with multiple subcentimeter left-sided ureteral calculi. No hydronephrosis. However, there is diffuse periureteral fat stranding. Passage of these small calculi may be the etiology of the patient's pain. 2. No other acute intra-abdominal findings. Dictated by: Zahra Babb M.D. on 10/20/2016 at 17:51 Approved by: Zahra Babb M.D. on 10/20/2016 at 17:57 Re-Eval/Medical Decision Time of Eval: 18:08 Re-Evaluation/Progress Note: Pt rechecked. Informed pt of plan for treatment. Pt understands and agrees with plan for treatment. F/U instructions and RTER warnings given. All questions addressed. Counseled Regarding: Diagnosis, Lab results, Need for follow-up, When/why to return to ED Discharge & Departure Primary Impression: Musculoskeletal back pain Disposition: Home Discharge Condition All VS Reviewed: Yes Condition: Stable Additional Instructions: Thank for you entrusting us with your care today. You were diagnosed with musculoskeletal back pain. All your imaging and lab results appeared to be normal. With all your recent kidney issues (stones and stents) I did do a CT scan to make sure this pain was NOT related to a new kidney issue - it is NOT. Your back should get better over the next few days. It is OK to use 400mg of ibuprofen every 6 hours for pain if you need it. If you aren't hurting much, it is always safer to avoid unneeded medication. Please return to the emergency department if you experience any new or worsening symptoms and follow up with your primary care provider with any further questions. I hope you feel better soon. Referrals: Ed Garcia MD (PCP) Scribe Attestation Portions of this note were transcribed by Nabeel Holland. I, Dr. Mullins personally performed the history, physical exam and medical decision-making; I reviewed and confirmed the accuracy of the information in the transcribed note. copies to: Ed Garcia MD, Shawna L MD Oct 20, 2016 16:34 Nabeel Holland Oct 20, 2016 16:52
--- NOTE | 2016-10-20 17:58 | DRSVH ---
PROCEDURE: CT KUB ([id number]) INDICATIONS: left flank pain TECHNIQUE: Noncontrast 5 mm thick sections acquired from the diaphragms to the symphysis. 5 mm thick coronal an d sagittal reformats were then performed. For radiation dose reduction, the following was used: aut omated exposure control, adjustment of mA and/or kV according to patient size. COMPARISON: None. FINDINGS: Image quality: Excellent. Lung bases: Lung bases are clear. Heart size is normal. Urinary system: The kidneys demonstrate normal size. There is mild bilateral perinephric fat strandin g. A nonobstructing 9 mm diameter calculus is present in the right renal pelvis. This the right urete r demonstrates normal course and caliber. No ureterolithiasis. There is a low density left exophytic renal cyst. A double-J ureteral stent is present within the left renal collecting system which is non dilated. There is a prominent left extrarenal pelvis. A probable 4 mm diameter calculus is present wi thin the mid left ureter. There is periureteral fat stranding throughout the left ureter. The distal aspect of the double-J ureteral stent is within the bladder. There are likely multiple small calculi within the distal left ureter near the ureterovesicular junction. No bladder calculi. There is mild b ladder wall thickening. There is a small right posterior bladder diverticulum. Other solid organs: Liver and spleen are normal in size. Multiple subcentimeter gallstones are layer ed in the gallbladder fundus. No gallbladder wall thickening or pericholecystic fluid. Pancreas is no rmal in contours. No adrenal nodules. Peritoneum and bowel: Unenhanced bowel loops demonstrate normal wall thickness and caliber. Patient is status post right hemicolectomy. No free fluid or air. Nodes and vessels: No retroperitoneal or mesenteric adenopathy by size criteria. Aorta and inferior vena cava are normal in caliber. Dense atheromatous calcification is present throughout the abdomin al aorta. There is a partially calcified intramural thrombus within the lower abdominal aorta. Abdominal wall: No ventral hernias. Pelvis: No free pelvic fluid. No inguinal hernias or adenopathy. Bones: No suspicious bony lesions. No vertebral body compression fractures. Severe degenerative ch anges are present throughout the lumbar spine. IMPRESSION: 1. Left double-J ureteral stent with multiple subcentimeter left-sided ureteral calculi. No hydroneph rosis. However, there is diffuse periureteral fat stranding. Passage of these small calculi may be th e etiology of the patient's pain. 2. No other acute intra-abdominal findings. Dictated by: Zahra Babb M.D. on 10/20/2016 at 17:51 Approved by: Zahra Babb M.D. on 10/20/2016 at 17:57
[2016-10-20 20:31] VITALS: BP 113/75; PULSE 83; RESP 20; O2SAT 99
== END 2016-10-20 20:32 | disposition home or self-care (01) ==
LOC: SED 14:54 → EDUNIT# 14:54 → EDBD 14:54 → SED 20:32
DX: M54.9 Dorsalgia, unspecified (principal); I10 Essential (primary) hypertension; G30.9 Alzheimer's disease, unspecified; Z79.82 Long term (current) use of aspirin; Z85.038 Personal history of other malignant neoplasm of large intestine; Z85.46 Personal history of malignant neoplasm of prostate